=== PATIENT | female | born 1930 | race Caucasian/White ===

== ENCOUNTER 2019-05-07 02:23 | Emergency (ER) | payer MEDICARE, MEDICAID ==
[~2019-05-07] VITALS: Ht 160 cm; Wt 113.9 kg
[2019-05-07 02:23] VITALS: BP 119/62
--- NOTE | 2019-05-07 02:26 | NUR ---
PT JUANITO BLS. TAKEN TO BED 10
--- NOTE | 2019-05-07 02:30 | NUR ---
88 yo female biba from [facility] for s/p fall. pt presents with facial swelling; lip lac present with dried old red drainage. c spine precautions in place. pt c/o neck pain 8/10 sharp pain. pt aaox3, following commands. +3 brisk perrl. generalized weakness noted. pt has pacemaker, palpable pulses. skin pink warm dry. lungs clear even unlabored. abd soft non distended. gurney locked in lowest position. hx: copd, chf, htn, hld, pacemaker ax:pcn
--- NOTE | 2019-05-07 02:41 | NUR ---
Dr. Gonzalez examining patient
[2019-05-07] MEDS ORDERED: LIDOCAINE/EPI 1% 1:100000 20 ML VIAL INJ ONE (02:45)
[2019-05-07] MEDS ORDERED: fentaNYL 0.05 MG/ML VIAL IVP ONE (02:45)
[2019-05-07 03:07] LABS: EOSINOPHILS # (AUTO) 0.7 K/uL (0-0.4); HEMOGLOBIN 14.6 g/dL (12.0-16.0)
[2019-05-07 03:21] LABS: BASOPHILS # (AUTO) 0.2 K/uL (0.00-0.22); BASOPHILS % (AUTO) 1.4 % (0.0-2.0); HEMATOCRIT 44.1 % (36-48); LYMPHOCYTES # (AUTO) 1.3 K/uL (2.5-16.5); MEAN CORPUSCULAR HEMOGLOBIN 31 pg (27-31); MEAN CORPUSCULAR HGB CONC 33 g/dL (33-37); MEAN CORPUSCULAR VOLUME 94.8 fL (80-94); MONOCYTES # (AUTO) 1.2 K/uL (0.8-1.0); MONOCYTES % (AUTO) 7.4 % (1.7-9.3); NEUTROPHILS % (AUTO) 79.4 % (42.2-75.2); PLATELET COUNT (AUTO) 377 K/uL (140-450); RED BLOOD CELL COUNT(AUTO) 4.65 MIL/uL (4.20-5.40)
[2019-05-07 03:22] LABS: ANION GAP 12.1 (8-16); ASPARTATE AMINOTRANSFERASE 44 U/L (15-37); CARBON DIOXIDE 25.9 mmol/L (21-32); CHLORIDE 106 mmol/L (98-107); CREATININE 1.4 mg/dL (0.6-1.3); GLUCOSE 128 mg/dL (74-106); SODIUM SERUM 140 mmol/L (136-145); TOTAL BILIRUBIN 0.8 mg/dL (0.0-1.0); UREA NITROGEN, BLOOD 31 mg/dL (7-18)
[2019-05-07 03:24] LABS: LYMPHOCYTES % (AUTO) 7.8 % (20.5-51.1); WHITE BLOOD COUNT (AUTO) 16.4 K/uL (4.8-10.8)
[2019-05-07 03:26] LABS: PROTHROMBIN TIME 11.4 secs (10.8-13.4)
--- NOTE | 2019-05-07 04:28 | NUR ---
PT RETURN FROM CT
--- NOTE | 2019-05-07 04:30 | NUR ---
pt son @ bedside
--- NOTE | 2019-05-07 05:30 | NUR ---
pt trial run able to dangle feet @ bedside and amb with 3 steps weight bearing; standy assist.
[2019-05-07] MEDS ORDERED: ONDANSETRON 4 MG/2 ML VIAL IVP ONE (06:00)
[2019-05-07 06:05] VITALS: BP 128/62
--- NOTE | 2019-05-07 06:05 | NUR ---
Patient discharged with v/s stable. Written and verbal after care instructions given and explained. Patient alert, oriented and verbalized understanding of instructions. Wheel Chair Assisted to car. pt son provided transport to senior living. All questions addressed prior to discharge. ID band removed. Patient advised to follow up with PMD. Rx of tylenol given. Patient educated on indication of medication including possible reaction and side effects. Opportunity to ask questions provided and answered.
== END 2019-05-07 06:05 | disposition home or self-care (01) ==
LOC: MED 02:23
DX: S01.511A Laceration without foreign body of lip, initial encounter (principal); M54.2 Cervicalgia; Z88.0 Allergy status to penicillin; Z88.2 Allergy status to sulfonamides; Z88.1 Allergy status to other antibiotic agents; Z88.8 Allergy status to other drugs, medicaments and biological substances; Z95.0 Presence of cardiac pacemaker; Z86.79 Personal history of other diseases of the circulatory system; W06.XXXA Fall from bed, initial encounter; Y93.89 Activity, other specified; Y92.89 Other specified places as the place of occurrence of the external cause; Y99.8 Other external cause status
CPT/HCPCS: 36415; 40650; 70450; 71045; 72125; 80053; 85025; 85610; 85730; 96374; 96375; 99284; J2001; J2405; J3010; Q0092

== ENCOUNTER 2019-05-14 13:33 | Emergency (ER) | payer OTHER, MEDICARE, MEDICAID ==
[~2019-05-14] VITALS: Ht 160 cm; Wt 86.2 kg
[2019-05-14 13:35] VITALS: BP 112/47
[2019-05-14] MEDS ORDERED: BRIM5SOL3 OP (13:52)
[2019-05-14] MEDS ORDERED: GLIP5TAB4 PO (13:52)
[2019-05-14] MEDS ORDERED: ZEBETA PO (13:52)
[2019-05-14] MEDS ORDERED: HYDR500C PO (13:52)
[2019-05-14] MEDS ORDERED: CLOP75TA26 PO (13:52)
[2019-05-14] MEDS ORDERED: POTA10TE30 PO (13:52)
[2019-05-14] MEDS ORDERED: PRAV20TA2 PO (13:52)
[2019-05-14] MEDS ORDERED: FORM1 IH (13:52)
[2019-05-14] MEDS ORDERED: ASPI-1718 PO (13:52)
[2019-05-14] MEDS ORDERED: FURO-570 PO (13:52)
[2019-05-14] MEDS ORDERED: BUPR150T12 PO (13:52)
[2019-05-14] MEDS ORDERED: XALOS OP (13:52)
[2019-05-14] MEDS ORDERED: ONDANSETRON 4 MG/2 ML VIAL IVP ONE (14:15)
[2019-05-14] MEDS ORDERED: NACL 0.9% 1,000 ML IV ONE (14:15)
[2019-05-14 14:41] LABS: BASOPHILS % (AUTO) 0.2 % (0.0-2.0); EOSINOPHILS # (AUTO) 0.8 K/uL (0-0.4); HEMATOCRIT 45.4 % (36-48); HEMOGLOBIN 14.9 g/dL (12.0-16.0); LYMPHOCYTES # (AUTO) 1.2 K/uL (2.5-16.5); LYMPHOCYTES % (AUTO) 10.9 % (20.5-51.1); MEAN CORPUSCULAR HEMOGLOBIN 31 pg (27-31); MEAN CORPUSCULAR HGB CONC 33 g/dL (33-37); MEAN CORPUSCULAR VOLUME 95.1 fL (80-94); MONOCYTES % (AUTO) 9.2 % (1.7-9.3); NEUTROPHILS % (AUTO) 72.7 % (42.2-75.2); PLATELET COUNT (AUTO) 261 K/uL (140-450); RED BLOOD CELL COUNT(AUTO) 4.77 MIL/uL (4.20-5.40); RED CELL DISTRIBUTION WIDTH 16.3 % (11.6-13.7); WHITE BLOOD COUNT (AUTO) 11.1 K/uL (4.8-10.8)
[2019-05-14 14:59] LABS: ANION GAP 13.2 (8-16); ASPARTATE AMINOTRANSFERASE 36 U/L (15-37); CARBON DIOXIDE 22.8 mmol/L (21-32); CHLORIDE 110 mmol/L (98-107); CREATININE 1.2 mg/dL (0.6-1.3); GLUCOSE 111 mg/dL (74-106); LIPASE 124 U/L (73-393); SODIUM SERUM 142 mmol/L (136-145); TOTAL BILIRUBIN 0.8 mg/dL (0.0-1.0); UREA NITROGEN, BLOOD 20 mg/dL (7-18)
[2019-05-14 17:33] LABS: PROTHROMBIN TIME 12.1 secs (10.8-13.4)
[2019-05-14 18:03] LABS: BILIRUBIN,URINE NEGATIVE (NEGATIVE); BLOOD, URINE TRACE-L (NEGATIVE); LEUKOCYTE ESTERASE ,URINE 3+ (NEGATIVE); NITRITE, URINE NEGATIVE (NEGATIVE); UGLUCOSE NEGATIVE (NEGATIVE)
[2019-05-14 18:22] LABS: APPEARANCE,URINE CLOUDY (CLEAR); COLOR,URINE AMBER (YELLOW)
[2019-05-14 18:47] LABS: YEAST,URINE Few /HPF (None Seen)
[2019-05-14] MEDS ORDERED: LABETALOL 100 MG/20 ML VIAL IVP ONE (20:25)
[2019-05-14 20:50] VITALS: BP 116/63
== END 2019-05-14 20:50 | disposition short-term general hospital (02) ==
LOC: MED 13:33
DX: I71.00 Dissection of unspecified site of aorta (principal); I73.9 Peripheral vascular disease, unspecified; N39.0 Urinary tract infection, site not specified; Z79.82 Long term (current) use of aspirin; Z79.899 Other long term (current) drug therapy; Z88.1 Allergy status to other antibiotic agents; Z88.0 Allergy status to penicillin; Z88.2 Allergy status to sulfonamides; Z88.8 Allergy status to other drugs, medicaments and biological substances
CPT/HCPCS: 36415; 71275; 74174; 74176; 80053; 81001; 83605; 83690; 85025; 85610; 87040; 87086; 87186; 93005; 96374; 99291; J2405; J7030; Q9967

== ENCOUNTER 2019-05-22 14:05 | Inpatient (IN) | payer OTHER, MEDICAID ==
[~2019-05-22] VITALS: Ht 160 cm; Wt 85.3 kg
[2019-05-22 14:05] VITALS: BP 115/87
[~2019-05-22 14:05] MED LIST: ASPI-1718 PO; BRIM5SOL3 OP; BUPR150T12 PO; CLOP75TA26 PO; FORM1 IH; FURO-570 PO; GLIP5TAB4 PO; HYDR500C PO; POTA10TE30 PO; PRAV20TA2 PO; XALOS OP; ZEBETA PO
--- NOTE | 2019-05-22 14:05 | NUR ---
PT BIBA ALS TO ER BED 10
[2019-05-22 14:55] LABS: APPEARANCE,URINE HAZY (CLEAR); BILIRUBIN,URINE 1+ (NEGATIVE); BLOOD, URINE NEGATIVE (NEGATIVE); COLOR,URINE DARK YELLOW (YELLOW); LEUKOCYTE ESTERASE ,URINE TRACE (NEGATIVE); NITRITE, URINE NEGATIVE (NEGATIVE); PH,URINE 5.5 (5.0-9.0); UGLUCOSE NEGATIVE (NEGATIVE)
[2019-05-22 14:56] LABS: BASOPHILS % (AUTO) 0.4 % (0.0-2.0); EOSINOPHILS # (AUTO) 0.6 K/uL (0-0.4); EOSINOPHILS % (AUTO) 7.2 % (0.0-4.0); HEMATOCRIT 44.9 % (36-48); HEMOGLOBIN 14.7 g/dL (12.0-16.0); LYMPHOCYTES # (AUTO) 1.1 K/uL (2.5-16.5); LYMPHOCYTES % (AUTO) 12.9 % (20.5-51.1); MEAN CORPUSCULAR HEMOGLOBIN 32 pg (27-31); MEAN CORPUSCULAR HGB CONC 33 g/dL (33-37); MEAN CORPUSCULAR VOLUME 96.2 fL (80-94); MONOCYTES # (AUTO) 0.9 K/uL (0.8-1.0); MONOCYTES % (AUTO) 10.9 % (1.7-9.3); NEUTROPHILS # (AUTO) 5.6 K/uL (1.8-7.7); NEUTROPHILS % (AUTO) 68.6 % (42.2-75.2); PLATELET COUNT (AUTO) 251 K/uL (140-450); RED BLOOD CELL COUNT(AUTO) 4.66 MIL/uL (4.20-5.40); RED CELL DISTRIBUTION WIDTH 16.9 % (11.6-13.7); WHITE BLOOD COUNT (AUTO) 8.2 K/uL (4.8-10.8)
--- NOTE | 2019-05-22 14:58 | NUR ---
returns to our er from [facility] facility c/o sob and headache---full clear speech but with obvious accessory muscle use noted adds headache x 2 days denies recent injury
[2019-05-22 15:07] LABS: ANION GAP 15.4 (8-16); CHLORIDE 109 mmol/L (98-107); CREATININE 1.4 mg/dL (0.6-1.3); GLUCOSE 129 mg/dL (74-106); POTASSIUM 4.4 mmol/L (3.5-5.1); SODIUM SERUM 142 mmol/L (136-145); UREA NITROGEN, BLOOD 19 mg/dL (7-18)
[2019-05-22 15:10] LABS: RBC,URINE 0-5 /HPF (0-5)
[2019-05-22 15:13] LABS: ALBUMIN 1.8 g/dL (3.4-5.0); ASPARTATE AMINOTRANSFERASE 28 U/L (15-37); TOTAL BILIRUBIN 0.8 mg/dL (0.0-1.0)
[2019-05-22] MEDS ORDERED: BISO5TAB PO (15:33)
[2019-05-22] MEDS ORDERED: BUPR150T12 PO (15:33)
[2019-05-22] MEDS ORDERED: DORZ10SO23 OP (15:33)
[2019-05-22] MEDS ORDERED: VANCOMYCIN 1GM/DEXT 5% PREMIX 200 ML IV ONE (15:40)
[2019-05-22] MEDS ORDERED: VANCOMYCIN PER PHARMACY MC PRN (15:40)
[2019-05-22] MEDS ORDERED: VANCOMYCIN 1,000 MG VIAL ONE (16:01)
[2019-05-22] MEDS ORDERED: MORPHINE SULFATE 2 MG/ML SYR IVP PRN (16:10)
[2019-05-22] MEDS ORDERED: HYDROcodone/APAP 5/325 MG 1 TAB TAB PO PRN (16:10)
[2019-05-22] MEDS ORDERED: ONDANSETRON 4 MG/2 ML VIAL IM/IVP PRN (16:10)
[2019-05-22] MEDS ORDERED: DOCUSATE SODIUM 100 MG GELCAP PO PRN (16:10)
[2019-05-22] MEDS ORDERED: ACETAMINOPHEN 325 MG TAB PO PRN (16:10)
[2019-05-22] MEDS ORDERED: ALBUTEROL SULFATE/IPRATROPIU 3 ML SOL IH PRN (16:15)
[2019-05-22] MEDS ORDERED: MELATONIN 3 MG TAB PO PRN (16:20)
[2019-05-22] MEDS ORDERED: MEDICATION REC. PHARMACY CONS. 1 EA MISC MC PRN (16:20)
--- NOTE | 2019-05-22 16:50 | NUR ---
Patient will be admitted to care of DR. FRYE. Admited to TELE. Will go to room 128B. Belongings list completed. Report to PADMINI MITCHELL.
--- NOTE | 2019-05-22 17:00 | NUR ---
PT ARRIVED ON THE UNIT. RECEIVED REPORT FROM SHANK PINNER. ORIENTED PT TO UNIT AND ROOM. PERFORMED HEAD TO TOE ASSESSMENT. OBTAINED ADMISSION VITALS. OBTAINED MRSA NARES.
[2019-05-22 17:15] LABS: CHOL/HDL RATIO 6.9 (1-4.5); FREE T4 (FREE THYROXINE) 0.98 ng/dL (0.76-1.46); MAGNESIUM 1.4 mg/dL (1.8-2.4); PHOSPHORUS 3.1 mg/dL (2.5-4.9); THYROID STIMULATING HORMONE 3.86 uIU/mL (0.34-3.74)
[2019-05-22 17:35] LABS: PROTHROMBIN TIME 11.6 secs (10.8-13.4)
[2019-05-22] MEDS ORDERED: FUROSEMIDE 100 MG/10 ML VIAL IV SCH (18:00)
[2019-05-22] MEDS ORDERED: AZITHROMYCIN 250 MG TAB PO SCH (18:00)
[2019-05-22] MEDS: NACL 0.9% 1,000 ML IV SCH (18:05)
[2019-05-22] MEDS: MAG SULF 2000 MG/WATER PREMIX 100 ML IV SCH ×2 (18:50→20:58)
--- NOTE | 2019-05-22 19:28 | NUR ---
ENDORSED PT TO PM RN PT AWAKE IN BED PT ON 3L NASAL CANULA IVF INFUSING MAG RIDER INFUSING. ALL SAFETY MEASURES ARE IN PLACE
--- NOTE | 2019-05-22 19:29 | NUR ---
RECEIVED BEDSIDE REPORT FROM DAY RN. PT IS AAOX4. ON NC 3L O2 RESPIRATIONS ARE EQUAL AND UNLABORED. PT WITH SKIN TEAR ON NOSE AND STITCHES ON UPPER LIP. SKIN TEAR ON UMBICAL GRADE SETTER. ON FALL PRECAUTION. ON STANDARD ISOLATION. IV ON R FA 22G NS @1OML/H RECEIVING MG RIDER AT 25M/H FIRST BAG INFUSING ORDER FOR TWO. POC DISCUSSED WITH PT. CALL LIGHT IS WITHIN REACH. WILL CONTINUE TO MONITOR.
--- NOTE | 2019-05-22 19:36 | NUR ---
RECEIVED PATIENT ON 3L NC. TITRATED TO 2L, PULSE OX SAT 96%. PATIENT DENIES SOB AT THIS TIME. PRN HHN NOT INDICATED. NO ACUTE RESPIRATORY DISTRESS NOTED. WILL CONTINUE TO MONITOR.
[2019-05-22 20:00] VITALS: BP 108/58
[2019-05-22] MEDS: buPROPion 150 MG TABER PO SCH (20:47)
--- NOTE | 2019-05-22 20:47 | NUR ---
VSS. NARCISO MEDICATIONS WERE GIVEN PER ORDERS. ALL NEEDS MET AT THIS TIME. CALL LIGHT IS WITHIN REACH. WILL CONTINUE TO MONITOR
[2019-05-22] MEDS ORDERED: NON-FORMULARY ITEM (Dorzolamide HCl/Timolol Maleat (Dorzolamide-Timolol Eye Drops) 1 DROP) OP SCH (21:00)
[2019-05-22] MEDS ORDERED: NON-FORMULARY ITEM (Mometasone/Formoterol (Dulera 200 Mcg/5 Mcg Inhaler) 2 PUFF) IH SCH (21:00)
--- NOTE | 2019-05-22 22:00 | NUR ---
PT IS SLEEPING COMFORTABLY IN BED. CHEST RISE AND FALL. CALL LIGHT IS WITHIN REACH. BED ALARM ON.
[2019-05-23] VITALS: BP 119/57
--- NOTE | 2019-05-23 | NUR ---
VITAL SIGNS ARE WITHIN NORMAL LIMITS. SAFETY MEASURES ARE IN PLACE.
--- NOTE | 2019-05-23 02:17 | NUR ---
PT IS SLEEPING COMFORTABLY IN BED. GAVE REPORT TO EMELY OCHOA RN. PT ENDORSED IN STABLE CONDITION.
--- NOTE | 2019-05-23 02:34 | NUR ---
RECEIVED REPORT FROM GRETA WASHINGTON.PT'S CONDITION IS STABLE AND SLEEPING.NO S/S OF ANY DISTRESS NOTED. WILL CONTINUE MONITORING.
[2019-05-23 04:00] VITALS: BP 115/58
--- NOTE | 2019-05-23 04:36 | NUR ---
SLEEPING.HR IS PACED.NO RESP.DISTRESS NOTED.IVF AT TKO RATE IS IN PROGRESS.
--- NOTE | 2019-05-23 06:29 | NUR ---
STILL IS SLEEPING.IVF INFUSING WELL.NO S/S OF ANY DISTRESS NOW.CALL LIGHT WITHIN REACH.
--- NOTE | 2019-05-23 07:20 | NUR ---
Received report from night coordinator nurse. Pt in stable condition. Call light in reach.
[2019-05-23] MEDS: glipiZIDE 5 MG TAB PO SCH ×2 (07:44→16:56)
[2019-05-23 08:00] VITALS: BP 120/60
[2019-05-23] MEDS: ASPIRIN 81 MG TAB.CHEW PO SCH (08:36)
[2019-05-23] MEDS: buPROPion 150 MG TABER PO SCH ×2 (08:36→22:03)
[2019-05-23] MEDS: CLOPIDOGREL 75 MG TAB PO SCH (08:36)
[2019-05-23] MEDS ORDERED: NON-FORMULARY ITEM (Pravastatin Sodium* (Pravachol*) 10 MG) PO SCH (09:00)
[2019-05-23] MEDS ORDERED: BISOPROLOL FUMARATE 2.5 MG PO SCH (09:00)
[2019-05-23] MEDS ORDERED: CLOPIDOGREL BISULFATE 75 MG PO SCH (09:00)
[2019-05-23] MEDS ORDERED: FUROSEMIDE 20 MG/2 ML VIAL IVP SCH (09:00)
[2019-05-23] MEDS ORDERED: HYDROXYUREA 500 MG CAP PO SCH (10:00)
--- NOTE | 2019-05-23 10:30 | NUR ---
Pt is resting in bed. No signs of distress noted. No complaints of pain. Call light in reach.
--- NOTE | 2019-05-23 11:00 | NUR ---
Pt removed IV line on right AC. Catheter intact. No active bleeding noted. Call light in reach.
[2019-05-23 12:00] VITALS: BP 111/60
--- NOTE | 2019-05-23 13:00 | NUR ---
Pt in bed resting. No signs of distress noted. Pt in stable condition. Call light in reach.
[2019-05-23] MEDS ORDERED: ATENOLOL 25 MG TAB PO SCH (14:15)
[2019-05-23 16:00] VITALS: BP 106/49
--- NOTE | 2019-05-23 16:00 | NUR ---
Pt is resting in bed. No signs of distress noted. Call light in reach.
--- NOTE | 2019-05-23 16:00 | NUR ---
Pt's IV line was inserted to right forearm 22G by ER nurse. Line is intact, and patent. Call light in reach.
[2019-05-23] MEDS ORDERED: INSULIN LISPRO SLIDING SCALE 100 UNITS/ML VIAL SUBQ PRN (16:55)
[2019-05-23] MEDS ORDERED: DEXTROSE 50% 50 ML SYR IVP PRN (16:55)
[2019-05-23] MEDS: NACL 0.9% 1,000 ML IV SCH (18:00)
--- NOTE | 2019-05-23 18:00 | NUR ---
Pt is in bed eating dinner. Daughter by bedside. No signs of distress noted .Call light in reach.
[2019-05-23] MEDS: AZITHROMYCIN 250 MG TAB PO SCH (18:22)
--- NOTE | 2019-05-23 19:38 | NUR ---
Shift report given to night coordinator nurse. Pt is in stable condition. Call light in reach.
--- NOTE | 2019-05-23 19:39 | NUR ---
RECEIVED BEDSIDE REPORT FROM DAY RN. PT IS AAOX4. ON NC 2L O2 RESPIRATIONS ARE EQUAL AND UNLABORED. PT WITH SKIN TEAR ON NOSE AND STITCHES ON UPPER LIP STEVE. SKIN TEAR ON UMBICAL DRESSING IS CLEAN DRY AND INTACT. HAS OPTIFOAM ON SACRAL. ON FALL PRECAUTION. ON STANDARD ISOLATION. IV ON R FA 22G NS @1OML/H FAMILY IS AT BEDSIDE. POC DISCUSSED WITH PT. CALL LIGHT IS WITHIN REACH. WILL CONTINUE TO MONITOR.
[2019-05-23 20:00] VITALS: BP 120/68
--- NOTE | 2019-05-23 20:30 | NUR ---
VITAL SIGNS ARE WITHIN NORMAL LIMITS. BLOOD SUGAR IS 104 NO COVERAGE NEEDED. CALL LIGHT IS WITHIN REACH.
--- NOTE | 2019-05-23 20:32 | NUR ---
RECEIVED PATIENT ON 2L NASAL CANNULA, PULSE OX 96%. NO SOB NOTED AT THIS TIME. PRN HHN NOT INDICATED. NO RESPIRATORY DISTRESS NOTED. WILL CONTINUE TO MONITOR.
[2019-05-23] MEDS: BLOOD GLUCOSE MONITORING 1 DEV DEV FS SCH (20:49)
[2019-05-23] MEDS ORDERED: LATANOPROST 0.005% OP 2.5 ML BTL OP SCH (21:00)
--- NOTE | 2019-05-23 22:30 | NUR ---
PATIENT IS SLEEPING COMFORTABLY IN BED. CHEST RISE AND FALL. REMAINS ON NC 2L O2. CALL LIGHT IS WITHIN REACH. WILL CONTINUE TO MONITOR.
[2019-05-24] VITALS: BP 113/38
--- NOTE | 2019-05-24 | NUR ---
VITAL SIGNS ARE WITHIN NORMAL LIMITS. NO S/S OF DISTRESS. SAFETY MEASURES. CALL LIGHT IS WITHIN REACH.
--- NOTE | 2019-05-24 01:22 | NUR ---
PATIENT IS SLEEPING COMFORTABLY IN BED. CHEST RISE AND FALL. SAFETY MEASURES ARE IN PLACE.
--- NOTE | 2019-05-24 02:43 | NUR ---
PATIENT IS SLEEPING COMFORTABLY IN BED. CHEST RISE AND FALL. CALL LIGHT IS WITHIN REACH.
[2019-05-24 04:00] VITALS: BP 100/50
--- NOTE | 2019-05-24 04:00 | NUR ---
VITAL SIGNS ARE WITHIN NORMAL LIMITS. NO S/S OF DISTRESS. CALL LIGHT IS WITHIN REACH.
[2019-05-24] MEDS: BLOOD GLUCOSE MONITORING 1 DEV DEV FS SCH ×3 (06:34→17:15)
[2019-05-24] MEDS: glipiZIDE 5 MG TAB PO SCH ×2 (06:34→16:30)
--- NOTE | 2019-05-24 06:35 | NUR ---
BLOOD SUGAR IS 68. GAVE PATIENT APPLE JUICE AND HELD NARCISO GLIPIZIDE. SAFETY MEASURES ARE IN PLACE. WILL CONTINUE TO MONITOR
[2019-05-24] MEDS ORDERED: VANCOMYCIN PER PHARMACY MC PRN (07:15)
[2019-05-24 07:27] LABS: BASOPHILS # (AUTO) 0.2 K/uL (0.00-0.22); BASOPHILS % (AUTO) 2.3 % (0.0-2.0); EOSINOPHILS # (AUTO) 0.7 K/uL (0-0.4); HEMATOCRIT 44.6 % (36-48); HEMOGLOBIN 14.7 g/dL (12.0-16.0); LYMPHOCYTES # (AUTO) 0.9 K/uL (2.5-16.5); LYMPHOCYTES % (AUTO) 9.4 % (20.5-51.1); MEAN CORPUSCULAR HEMOGLOBIN 32 pg (27-31); MEAN CORPUSCULAR HGB CONC 33 g/dL (33-37); MEAN CORPUSCULAR VOLUME 96.1 fL (80-94); MONOCYTES % (AUTO) 9.9 % (1.7-9.3); NEUTROPHILS # (AUTO) 7.1 K/uL (1.8-7.7); NEUTROPHILS % (AUTO) 71.4 % (42.2-75.2); PLATELET COUNT (AUTO) 206 K/uL (140-450); RED BLOOD CELL COUNT(AUTO) 4.64 MIL/uL (4.20-5.40); RED CELL DISTRIBUTION WIDTH 16.6 % (11.6-13.7); WHITE BLOOD COUNT (AUTO) 9.9 K/uL (4.8-10.8)
--- NOTE | 2019-05-24 07:30 | NUR ---
GAVE BEDSIDE REPORT TO DAY RN. PT ENDORSED IN STABLE CONDITION.
[2019-05-24 07:34] LABS: CARBON DIOXIDE 23.4 mmol/L (21-32); CHLORIDE 107 mmol/L (98-107); CREATININE 1.2 mg/dL (0.6-1.3); GLUCOSE 66 mg/dL (74-106); POTASSIUM 3.4 mmol/L (3.5-5.1); SODIUM SERUM 139 mmol/L (136-145); UREA NITROGEN, BLOOD 18 mg/dL (7-18)
--- NOTE | 2019-05-24 07:41 | NUR ---
RECEIVED REPORT FROM PAINTING TECHNICIAN RN FOR CONTINUITY OF CARE. PT IS AAOX4, AMBULATORY AND COOPERATIVE. PT RESP EVEN AND UNLABORED ON RA. NO S/S OF DISTRESS. ALL NEEDS CURRENTLY MET. WILL CONTINUE TO ROUND FREQUENTLY ON PT. BED IN LOW POSITION, CALL LIGHT WITHIN REACH. WILL ROUND FREQUENTLY ON PT. Addendum: 05/24/19 at 1246 by Cristin Lara RN PT ON 2L O2 VIA NC. PT NOT AMBULATORY WITHOUT WALKER. PT PREFERS HER WHEELCHAIR.
[2019-05-24 07:51] LABS: MAGNESIUM 1.6 mg/dL (1.8-2.4)
[2019-05-24 08:00] VITALS: BP 102/70
--- NOTE | 2019-05-24 08:25 | NUR ---
PATIENT HAS BEEN SCREENED AND CATEGORIZED HIGH NUTRITION RISK. PATIENT WILL BE SEEN WITHIN 1-2 DAYS OF ADMISSION. 05/24/[address]
[2019-05-24] MEDS ORDERED: ATENOLOL 25 MG TAB PO SCH (09:00)
[2019-05-24] MEDS ORDERED: FUROSEMIDE 20 MG TAB PO SCH (09:00)
[2019-05-24] MEDS ORDERED: DORZOLAMIDE 2% OP 10 ML BTL OP SCH (09:00)
[2019-05-24] MEDS: buPROPion 150 MG TABER PO SCH (09:00)
[2019-05-24] MEDS ORDERED: TIMOLOL OP 0.5% 5 ML BTL OP SCH (09:00)
--- NOTE | 2019-05-24 09:41 | NUR ---
ADMINISTERED MORNING MEDS TO PT. PT TOLERATED THEM WELL. ALL NEEDS CURRENTLY MET. WILL CONTINUE TO ROUND FREQUENTLY ON PT.
[2019-05-24] MEDS: ASPIRIN 81 MG TAB.CHEW PO SCH (09:43)
[2019-05-24] MEDS: CLOPIDOGREL 75 MG TAB PO SCH (09:43)
[2019-05-24] MEDS ORDERED: POTASSIUM CHLORIDE 10 MEQ TABER PO SCH ×2 (10:00→16:00)
--- NOTE | 2019-05-24 11:49 | NUR ---
PT RESTING IN BED. ALL NEEDS MET. WILL CONTINUE TO ROUND FREQUENTLY ON PT.
[2019-05-24 12:00] VITALS: BP 106/52
--- NOTE | 2019-05-24 12:14 | NUR ---
WOUND CARE EVALUATION NOTE: REASON FOR EVALUATION: MULTIPLE WOUNDS SKIN ASSESSMENT DONE WITH THIS 88 Y/O MALE PT ADMITTED TO [facility] WITH INITIAL DX OF S/P FALL PT IS AWAKE. SKIN IS WARM AND DRY, GOOD TURGOR. BLE NO HAIR GROWTH, NO EDEMA TO BILATERAL LOWER LEGS. BILATERAL DORSAL PEDAL PULSES PRESENT AND NORMAL THICKEN TOE NAILS OBSERVED. PLAN OF CARE DISCUSSED WITH PRIMARY RN AND PT. PT. VERBALIZING UNDERSTANDING, PT. IS AAX4. CLARIFICATION: NO PRESSURE ULCER TO SACRALCOCCYX AREA INTEGUMENTARY: -RIGHT UPPER LIP SUTURES IN PLACE DRY AND CLEAN, NO S/S OF DEHISCENCES -MID ABDOMEN UN-KNOW ETIOLOGY WITH PARTIAL THICKNESS SKIN LOSS 1X1.5X0.1CM WOUND BED PALE PINK WITH 20% YELLOW SLOUGH TISSUE, MOIST NO ODOR, WOUND EDGE FLAT JOHANA-WOUND SKIN INTACT -LEFT INNER BUTTOCK MAD WITH PARTIAL THICKNESS SKIN LOSS 0.5X0.2X0.1CM WOUND BED 100% PALE PINK MOIST NO ODOR, WOUND EDGE FLAT JOHANA-WOUND SKIN INTACT -SACRALCOCCYX SKIN INTACT NO OPEN WOUND RECOMMENDATION: -CLEANSE RIGHT UPPER LIP SUTURE LINE WITH NS. DAILY, PAT DRY AND FOOD OR BAGGAGE HANDLING RAMPMAN, MONITOR AND REPORT S/S OF INFECTION -CLEANSE MID ABDOMEN AND LEFT BUTTOCK WITH NS AND GAUZE, PAT DRY, APPLY HYDROCOLLOID DRESSING, CHANGE Q72 HOURS AND PRN WITH SOILING. -OFFLOAD BILATERAL HEELS BY PLACING PILLOWS UNDER CALVES UNLESS OTHERWISE CONTRAINDICATED -PRESSURE REDISTRIBUTION SURFACE THERAPY -TURN AND REPOSITION Q2H, OFFLOAD SACRALCOCCYX BY TURNING RIGHT AND LEFT -CONTINUE TO FOLLOW RD RECOMMENDATIONS PLEASE CONTACT WOUND CARE NURSE FOR ANY QUESTION AND CHANGE OF WOUND CONDITION.
[2019-05-24] MEDS ORDERED: GAUZE TP SCH (13:00)
--- NOTE | 2019-05-24 13:14 | NUR ---
PT SLEEPING IN BED. ALL NEEDS MET. WILL CONTINUE TO ROUND FREQUENTLY ON PT. BED IN LOW POSITION, CALL LIGHT WITHIN REACH.
--- NOTE | 2019-05-24 13:55 | NUR ---
05/24/19 RD INITIAL ASSESSMENT COMPLETED PLEASE REFER TO NUTRITION ASSESSMENT UNDER CARE ACTIVITY FOR ESTIMATED NUTRITIONAL NEEDS. 1. RECOMMEND CARDIAC, 60G CCHO MECHANICAL SOFT DIET 2. RECOMMEND GLUCERNA TID 3. RD TO FOLLOW-UP 2-3 DAYS, HIGH RISK VENANCIO MARKS, RD
--- NOTE | 2019-05-24 14:16 | NUR ---
DC PLANNING 88 YRS OLD WAS ADMITTED FROM HOME, WITH A DX OF PNEUMONIA, PT HAS PRIMARY INSURANCE [employer] AND SECONDARY [employer]. PT IS STABLE TO TRANSFER CALLED SONY SPOKE WITH MATHEW HARRIS , FAXED ALL THE CLINICALS AND INPATIENT HOSPITAL STAY NOTICE FORM. PER MATHEW LOOKING FOR A BED AND WILL BE TRANSFERRED TODAY.
[2019-05-24 16:00] VITALS: BP 124/64
[2019-05-24] MEDS ORDERED: MAG SULF 2000 MG/WATER PREMIX 50 ML IV SCH (16:00)
--- NOTE | 2019-05-24 16:54 | NUR ---
RECEIVED CALL FROM [facility] FOR PT TRANSFER. PT WILL BE GOING TO [facility] UNDER Ivan HAWTHORNE FOR CONTINUITY OF CARE. PT WILL BE GOING TO TELE ROOM 345. INDICATED TO HAVE REPORT GIVEN AT OR AFTER 1930 DUE TO NO ONE AVAILABLE TO TAKE REPORT UNTIL AFTER SHIFT CHANGE. PT TRANSPORT IS [facility] OR [facility]. PT AGILE PROJECT MANAGER TIME IS 2029.
[2019-05-24] MEDS ORDERED: LACTOBACILLUS RHAMNOSUS GG 1 EACH CAP PO SCH (17:00)
[2019-05-24] MEDS ORDERED: VANCOMYCIN 1,000 MG in DEXTROSE 5% 250 ML IV SCH (17:00)
[2019-05-24] MEDS ORDERED: AZIT250T11 PO (17:37)
[2019-05-24] MEDS ORDERED: D50SYR IVP (17:37)
[2019-05-24] MEDS ORDERED: FURO20TA8 PO (17:37)
[2019-05-24] MEDS ORDERED: VANC1PIG IV (17:37)
[2019-05-24] MEDS ORDERED: HUMSLIDE SUBQ (17:37)
[2019-05-24] MEDS ORDERED: ALBU3SOL83 IH ×2 (17:37)
[2019-05-24] MEDS ORDERED: LACT10CA PO (17:37)
[2019-05-24] MEDS ORDERED: GLUC-805 FS (17:37)
[2019-05-24] MEDS: NACL 0.9% 1,000 ML IV SCH (18:00)
--- NOTE | 2019-05-24 18:14 | NUR ---
PT RESTING IN BED HAVING DINNER. ALL NEEDS MET. WILL CONTINUE TO ROUND FREQUENTLY ON PT. BED IN LOW POSITION, CALL LIGHT WITHIN REACH.
[2019-05-24] MEDS: AZITHROMYCIN 250 MG TAB PO SCH (18:33)
[2019-05-24] MEDS ORDERED: ALBUTEROL SULFATE/IPRATROPIU 3 ML SOL IH SCH (19:00)
--- NOTE | 2019-05-24 19:15 | NUR ---
RECEIVED REPORT FROM SANITATION TANK WASHER RN FOR CONTINUITY OF CARE. PT IS AAOX3 WITH SOME PERIODS OF FORGETFULNESS ABLE TO FOLLOW SIMPLE COMMANDS. PT ON 2L O2 VIA NC. PT NOT AMBULATORY WITHOUT WALKER. PT PREFERS HER WHEELCHAIR. PT RESP EVEN AND UNLABORED ON RA. NO S/S OF DISTRESS. WITH R FOREARM IV SITE G 24, PATENT. BED IN LOW POSITION, CALL LIGHT WITHIN REACH. WILL ROUND FREQUENTLY ON PT.
[2019-05-24 20:00] VITALS: BP 97/48
--- NOTE | 2019-05-24 20:30 | NUR ---
OPTHA MEDS, HEPARIN NOT GIVEN DUE TO DISCHARGE ONGOING. NO BLOOD GLUCOSE TAKEN. WILL INFORM [facility] NURSE. DR. DANIEL AWARE.
--- NOTE | 2019-05-24 20:50 | NUR ---
CD OF PT RADIOLOGY READY AT RAD DEPT
--- NOTE | 2019-05-24 21:00 | NUR ---
GAVE DISCHARGE REPORT TO PADMINI MC. TEL NO [phone]. NURSE INFORMED THAT VANCO IVPB NOT YET STARTED AND TO GIVE THE 1ST DOSE AT [facility].PT IS GOING TO ROOM 345. FAXED [phone] ALSO DISCHARGE REPORT AND RECEIVED BY JASPAL,INFORMATION SYSTEMS SECURITY DEVELOPER
--- NOTE | 2019-05-24 21:01 | NUR ---
INFORMED ALREADY ALEXANDRO WASHINGTON. NO BLOOD GLUCOSE WAS TAKEN PRIOR TO DISCHARGE
--- NOTE | 2019-05-24 21:02 | NUR ---
INFORMED ALEXANDRO THAT BP ON THE LOW SIDE 97/48 ( MAP 60) HR 61; DR. DANIEL AWARE.
--- NOTE | 2019-05-24 21:30 | NUR ---
NO SPUTUM OF THE PATIENT WAS COLLECTED BEFORE DISCHARGE
--- NOTE | 2019-05-24 23:02 | NUR ---
TALKED TO CALHOUN WAS ASKING FOR ANTIBIOTIC THAT WE STARTED. TOLD HIM WE HAVE STARTED ON AZITHRO PO BUT THEY HAVE TO START THE 1ST DOSE OF VANCO 1 GRAM IV WE HAVE NOT STARTED IT YET. INFPRMED ON THE DISCHARGE SUMMMARY PER FAXED COPY TO JASPAL/ ALEXANDRO WASHINGTON
--- NOTE | 2019-05-25 00:07 | NUR ---
DISCHARGED AND TRANSFERRED PICKED UP BY NON-EMERGENCY TRANSPORT TO [facility]. PT'S VITAL SIGNS STABLE. ACCOMPANIED BY DAUGHTER AND ESCORTED TO EXIT.
[2019-05-25] MEDS ORDERED: LACTOBACILLUS RHAMNOSUS GG 1 EACH CAP PO SCH (09:00)
[2019-05-27] MEDS ORDERED: HYDROCOLLOID DRESSING TP SCH (09:00)
== END 2019-05-24 21:52 | disposition short-term general hospital (02) | DRG 177 ==
LOC: MED 14:05 → MMU 16:06
PROVIDERS: ADMIT General Practice; ATTEND General Practice
DX: J69.0 Pneumonitis due to inhalation of food and vomit (principal); N17.0 Acute kidney failure with tubular necrosis; I50.43 Acute on chronic combined systolic (congestive) and diastolic (congestive) heart failure; E43 Unspecified severe protein-calorie malnutrition; I42.0 Dilated cardiomyopathy; N39.0 Urinary tract infection, site not specified; Z68.33 Body mass index [BMI] 33.0-33.9, adult; F44.4 Conversion disorder with motor symptom or deficit; I11.0 Hypertensive heart disease with heart failure; Z95.0 Presence of cardiac pacemaker; I49.5 Sick sinus syndrome; Z96.651 Presence of right artificial knee joint; Z96.652 Presence of left artificial knee joint; Z66 Do not resuscitate; F32.9 Major depressive disorder, single episode, unspecified; E83.42 Hypomagnesemia; E02 Subclinical iodine-deficiency hypothyroidism; J44.9 Chronic obstructive pulmonary disease, unspecified; E87.6 Hypokalemia; D45 Polycythemia vera; K21.9 Gastro-esophageal reflux disease without esophagitis; Z88.1 Allergy status to other antibiotic agents; Z88.0 Allergy status to penicillin; Z88.2 Allergy status to sulfonamides; Z88.8 Allergy status to other drugs, medicaments and biological substances; Z79.82 Long term (current) use of aspirin; Z79.899 Other long term (current) drug therapy; Z90.11 Acquired absence of right breast and nipple; Z87.891 Personal history of nicotine dependence
CPT/HCPCS: 36415; 36600; 71045; 80048; 80053; 81001; 82150; 82803; 82948; 83036; 83605; 83690; 83735; 83880; 84100; 84439; 84443; 84484; 85025; 85610; 85730; 87040; 87081; 87086; 93005; 94640; 97530; 99285; C1758; J1644; J1940; J3370; J3475; J7030; J7060; J7620; Q0092

== ENCOUNTER 2019-07-25 11:09 | Emergency (ER) | payer OTHER, MEDICAID ==
[~2019-07-25] VITALS: Ht 165.1 cm; Wt 90.7 kg
[~2019-07-25 11:09] MED LIST changes: +ALBU3SOL83 IH; +AZIT250T11 PO; +BISO5TAB PO; -BRIM5SOL3 OP; +D50SYR IVP; +DORZ10SO23 OP; -FURO-570 PO; +FURO20TA8 PO; +GLUC-805 FS; +HUMSLIDE SUBQ; +LACT10CA PO; +VANC1PIG IV; -ZEBETA PO
[2019-07-25 11:20] VITALS: BP 116/52
[2019-07-25] MEDS: CLINDAMYCIN 600 MG/4 ML VIAL IM ONE (13:33)
[2019-07-25 14:18] VITALS: BP 113/44
== END 2019-07-25 14:19 | disposition home or self-care (01) ==
LOC: MED 11:09
DX: L03.811 Cellulitis of head [any part, except face] (principal); J44.9 Chronic obstructive pulmonary disease, unspecified; E11.9 Type 2 diabetes mellitus without complications; K21.9 Gastro-esophageal reflux disease without esophagitis; I10 Essential (primary) hypertension; Z95.0 Presence of cardiac pacemaker; Z98.890 Other specified postprocedural states; Z79.82 Long term (current) use of aspirin; Z79.899 Other long term (current) drug therapy; Z79.4 Long term (current) use of insulin; Z88.1 Allergy status to other antibiotic agents; Z88.0 Allergy status to penicillin; Z88.2 Allergy status to sulfonamides; Z88.8 Allergy status to other drugs, medicaments and biological substances
CPT/HCPCS: 96372; 99283; J3490

== ENCOUNTER 2019-07-28 09:56 | Inpatient (IN) | payer OTHER, MEDICAID ==
[~2019-07-28] VITALS: Ht 160 cm; Wt 84.8 kg
--- NOTE | 2019-07-28 09:56 | NUR ---
PATIENT BIBA TO BED 7 AT THIS TIME.
[2019-07-28 10:03] VITALS: BP 101/55
--- NOTE | 2019-07-28 10:29 | NUR ---
C/O SOB FROM [facility]. RR EVEN AND UNLABORED. PRODUCTIVE COUGH NOTED. LUNGS RONCHI BILATERALLY. PT ON 4 L NC. ABDOMEN LARGE, ROUND, AND SOFT. NO EDEMA NOTED. PAIN 4/10 USING NAVARRO ARIZA SCALE. WAS SEEN ON FRIDAY FOR [facility] S/S ADN DISCHARGED HOME. PMH- MS, PACEMAKER, COPD, CHF, PNA
[2019-07-28] MEDS ORDERED: NACL 0.9% 1,000 ML IV ONE (10:35)
--- NOTE | 2019-07-28 10:39 | NUR ---
XRAY AT BEDSIDE
--- NOTE | 2019-07-28 11:03 | NUR ---
IV INSERTED AND LABS DRAWN BEDSIDE
--- NOTE | 2019-07-28 11:07 | NUR ---
give fluids as bolus per de neida verbal order. bp 91/34
[2019-07-28] MEDS ORDERED: LEVOFLOXACIN 750 MG/D5W PREMIX 150 ML IV ONE (11:20)
[2019-07-28] MEDS ORDERED: FUROSEMIDE 40 MG/4 ML VIAL IVP ONE (11:25)
[2019-07-28 11:32] LABS: BASOPHILS # (AUTO) 0.1 K/uL (0.00-0.22); BASOPHILS % (AUTO) 0.4 % (0.0-2.0); EOSINOPHILS # (AUTO) 0.6 K/uL (0-0.4); EOSINOPHILS % (AUTO) 4.3 % (0.0-4.0); HEMATOCRIT 44.7 % (36-48); HEMOGLOBIN 14.4 g/dL (12.0-16.0); LYMPHOCYTES # (AUTO) 0.8 K/uL (2.5-16.5); LYMPHOCYTES % (AUTO) 6.2 % (20.5-51.1); MEAN CORPUSCULAR HEMOGLOBIN 30 pg (27-31); MEAN CORPUSCULAR HGB CONC 32 g/dL (33-37); MEAN CORPUSCULAR VOLUME 92.8 fL (80-94); MONOCYTES # (AUTO) 1.1 K/uL (0.8-1.0); MONOCYTES % (AUTO) 8.3 % (1.7-9.3); NEUTROPHILS # (AUTO) 10.5 K/uL (1.8-7.7); NEUTROPHILS % (AUTO) 80.8 % (42.2-75.2); PLATELET COUNT (AUTO) 323 K/uL (140-450); RED BLOOD CELL COUNT(AUTO) 4.81 MIL/uL (4.20-5.40)
--- NOTE | 2019-07-28 11:36 | NUR ---
LEVAQUIN RUNNING AND LASIX ADMINISTERED
--- NOTE | 2019-07-28 11:43 | NUR ---
STUDENTS AND INSTRUCTOR AT BEDSIDE FOR STRAIGHT CATH
[2019-07-28] MEDS ORDERED: HYDROcodone/APAP 7.5/325 MG 1 TAB PO PRN (11:45)
[2019-07-28] MEDS ORDERED: ONDANSETRON 4 MG/2 ML VIAL IM/IVP PRN (11:45)
[2019-07-28] MEDS ORDERED: DOCUSATE SODIUM 100 MG GELCAP PO PRN (11:45)
[2019-07-28] MEDS ORDERED: ACETAMINOPHEN 325 MG TAB PO PRN (11:45)
--- NOTE | 2019-07-28 11:59 | NUR ---
500 CC DARK YELLOW URINE COLLECTED FROM STRAIGHT IMMUNOLOGIST AT BEDSIDE FOR RE-DRAW
--- NOTE | 2019-07-28 12:15 | NUR ---
PTS DAUGHTER AT BEDSIDE [phone]
[2019-07-28] MEDS ORDERED: ALBUTEROL SULFATE/IPRATROPIU 3 ML SOL IH PRN (12:45)
[2019-07-28] MEDS ORDERED: CLINDAMYCIN 300 MG in DEXTROSE 5% 50 ML IV SCH (12:45)
[2019-07-28] MEDS ORDERED: INSULIN LISPRO SLIDING SCALE 100 UNITS/ML VIAL SUBQ PRN (13:00)
[2019-07-28] MEDS ORDERED: DEXTROSE 50% 50 ML SYR IVP PRN (13:00)
[2019-07-28 13:04] LABS: APPEARANCE,URINE CLOUDY (CLEAR); BILIRUBIN,URINE NEGATIVE (NEGATIVE); BLOOD, URINE 2+ (NEGATIVE); COLOR,URINE YELLOW (YELLOW); LEUKOCYTE ESTERASE ,URINE 3+ (NEGATIVE); NITRITE, URINE NEGATIVE (NEGATIVE); UGLUCOSE NEGATIVE (NEGATIVE)
[2019-07-28 13:07] LABS: ALBUMIN 0.9 g/dL (3.4-5.0); ASPARTATE AMINOTRANSFERASE 24 U/L (15-37); CARBON DIOXIDE 18.9 mmol/L (21-32); CHLORIDE 114 mmol/L (98-107); CREATININE 0.7 mg/dL (0.6-1.3); GLUCOSE 233 mg/dL (74-106); SODIUM SERUM 145 mmol/L (136-145); TOTAL BILIRUBIN 0.4 mg/dL (0.0-1.0); UREA NITROGEN, BLOOD 13 mg/dL (7-18)
[2019-07-28 13:11] LABS: POTASSIUM 1.9 mmol/L (3.5-5.1)
--- NOTE | 2019-07-28 13:13 | NUR ---
wound pictures taken and documented
[2019-07-28] MEDS ORDERED: MAG SULF 2000 MG/WATER PREMIX 50 ML IV ONE (13:15)
[2019-07-28] MEDS ORDERED: CALCIUM GLUCONATE 10% 1000 MG/10 ML VIAL IVP ONE (13:15)
[2019-07-28 13:24] LABS: RBC,URINE 0-5 /HPF (0-5); WBC,URINE TOO MANY TO COUNT /HPF (0-5); YEAST,URINE Few /HPF (None Seen)
[2019-07-28] MEDS: ALBUTEROL SULFATE/IPRATROPIU 3 ML SOL IH SCH ×2 (13:25→19:44)
--- NOTE | 2019-07-28 13:29 | NUR ---
AIDA RN SPOKE WITH RESIDENT. PER AIAD, HANG MAGNESIUM AND POTASSIUM TOGETHER
--- NOTE | 2019-07-28 13:30 | NUR ---
UNABLE TO OBTAIN ANOTHER IV ASCESS. WILL RUN MAGNESIUM IV. PT TAKING ORALLY PO POTASSIUM. THEN TO RUN POTASSIUM
[2019-07-28] MEDS ORDERED: BUDESONIDE 0.5 MG/2 ML NEBU INH SCH (14:00)
[2019-07-28] MEDS ORDERED: POTASSIUM CHLORIDE 20% 40 MEQ/15 ML UDC PO SCH (14:00)
[2019-07-28 14:19] LABS: CHOL/HDL RATIO 6.6 (1-4.5); FREE T4 (FREE THYROXINE) 1.21 ng/dL (0.76-1.46); PHOSPHORUS 3.3 mg/dL (2.5-4.9); THYROID STIMULATING HORMONE 1.51 uIU/mL (0.34-3.74)
--- NOTE | 2019-07-28 14:25 | NUR ---
Pt RECEIVED FROM GUILLE WASHINGTON. Transfer of care at this time.
[2019-07-28] MEDS: NACL 0.9% 250 ML IV SCH (14:30)
--- NOTE | 2019-07-28 14:33 | NUR ---
PATIENT ALERT AND AWAKE, BREATHING EVEN AND UNLABORED. RT AT BEDSIDE
[2019-07-28] MEDS ORDERED: CALCIUM GLUCONATE 10% 1,000 MG in NACL 0.9% 100 ML IV SCH (15:00)
[2019-07-28] MEDS ORDERED: POTASSIUM CHLORIDE 40 MEQ, LIDOCAINE MPF 1% 25 MG in NACL 0.9% 250 ML IV ONE (15:00)
[2019-07-28 15:08] LABS: PROTHROMBIN TIME 11.7 secs (10.8-13.4)
--- NOTE | 2019-07-28 15:30 | NUR ---
PATIENT ALERT AND ORIENTED, BREATHING EVEN AND UNLABORED
[2019-07-28 16:00] VITALS: BP 132/62
--- NOTE | 2019-07-28 16:00 | NUR ---
PT CAME TO UNIT VIA [facility]. PT WAS MOVED FROM [facility] TO UNIT BED. ADMISSION ASSESSMENT DONE. SACRAL WOUND NOTED. ER PICTURE TAKEN. IV LINE INTACT. PT ON 4L NC O2. PT IS RESPONSIVE AND FOLLOWING COMMANDS. PT IS RESPONSIVE TO VERBAL COMMANDS. PT IS NOW RESTING IN BED WITH NO COMPLAINS OF PAIN. CALL LIGHT IN REACH.
--- NOTE | 2019-07-28 16:10 | NUR ---
Patient will be admitted to care of DR FRYE. Admited to TELE. Will go to room 125A. Belongings list completed. Report to DOMINGA WASHINGTON.
[2019-07-28] MEDS: BLOOD GLUCOSE MONITORING 1 DEV DEV FS SCH ×2 (16:30→20:56)
--- NOTE | 2019-07-28 18:42 | NUR ---
PT IS NOTED WITH SACRAL WOUND. ED PICTURE TAKEN. REPORTED TO RESIDENT WOUND CONSULT ORDERED. WOUND ASSESSMENT DONE. NO DRAINAGE NOTED, NO ODOR NOTED. OPTIFOAM APPLIED. CALL LIGHT IN REACH.
--- NOTE | 2019-07-28 19:25 | NUR ---
SHIFT REPORT GIVEN TO AIR CONDITIONING EQUIPMENT MECHANIC NURSE. PT IS RESTING IN BED. VITAL WITHIN NORMAL LEVELS. CALL LIGHT IN REACH.
--- NOTE | 2019-07-28 19:26 | NUR ---
RECEIVED BEDSIDE REPORT FROM DAY SHIFT NURSE. NO SOB NOTED. BREATHING EVEN AND UNLABORED. SKIN WARM AND DRY TO TOUCH. IV SITE ON L WRIST, RUNNING KCL. PATENT, INTACT, AND ASYMPTOMATIC. BOARD UPDATED. BED IN LOW POSITION, CALL LIGHT WITHIN REACH.
[2019-07-28 20:00] VITALS: BP 129/61
[2019-07-28] MEDS: buPROPion 150 MG TABER PO SCH ×2 (20:56→21:00)
--- NOTE | 2019-07-28 20:56 | NUR ---
GIVEN HEPARIN MD ORDERED. PT TOLERATED WELL. 1500 SCHEDULED CALCIUM GIVEN D/T DELAYED IV AND NOT GIVEN IN DAY SHIFT. PT REFUSED WELLBUTRIN. EXPLAIN BENEFIT AND RISK, PT STILL REFUSED.
[2019-07-28] MEDS ORDERED: CLINDAMYCIN 600 MG/4 ML VIAL ONE (22:48)
[2019-07-28] MEDS: CLINDAMYCIN 300 MG in DEXTROSE 5% 50 ML IV SCH (22:53)
[2019-07-28 23:47] LABS: ANION GAP 11.7 (8-16); CHLORIDE 111 mmol/L (98-107); GLUCOSE 110 mg/dL (74-106); POTASSIUM 3.7 mmol/L (3.5-5.1); SODIUM SERUM 145 mmol/L (136-145)
[2019-07-28 23:48] LABS: CREATININE 1.1 mg/dL (0.6-1.3); UREA NITROGEN, BLOOD 17 mg/dL (7-18)
[2019-07-29] VITALS: BP 99/49
--- NOTE | 2019-07-29 | NUR ---
VS CHECKED, PT'S BASELINE. WILL CONTINUE TO MONITOR.
--- NOTE | 2019-07-29 02:00 | NUR ---
PT SLEEPING IN BED. NO ACUTE DISTRESS NOTED.
[2019-07-29 04:00] VITALS: BP 110/57
--- NOTE | 2019-07-29 04:00 | NUR ---
VS CHECKED, WITHIN PT'S BASELINE. WILL CONTINUE TO MONITOR. BED IN LOW POSITION, CALL LIGHT WITHIN REACH.
[2019-07-29] MEDS ORDERED: CLINDAMYCIN 600 MG/4 ML VIAL ONE ×2 (04:18→20:24)
[2019-07-29] MEDS: CLINDAMYCIN 300 MG in DEXTROSE 5% 50 ML IV SCH ×3 (04:23→20:27)
--- NOTE | 2019-07-29 04:23 | NUR ---
GIVEN CLEOCIN MD ORDERED. PT TOLERATED WELL.
[2019-07-29] MEDS: BLOOD GLUCOSE MONITORING 1 DEV DEV FS SCH ×4 (05:56→20:17)
--- NOTE | 2019-07-29 05:56 | NUR ---
BS CHECKED, 95, NO INSULIN COVERAGE NEEDED.
--- NOTE | 2019-07-29 06:57 | NUR ---
PT IN STABLE CONDITION, WILL ENDORSE TO DAY SHIFT NURSE FOR CONTINUOUS CARE.
[2019-07-29 07:22] LABS: BASOPHILS # (AUTO) 0.2 K/uL (0.00-0.22); BASOPHILS % (AUTO) 1.5 % (0.0-2.0); EOSINOPHILS # (AUTO) 0.4 K/uL (0-0.4); EOSINOPHILS % (AUTO) 3.9 % (0.0-4.0); HEMATOCRIT 39.3 % (36-48); HEMOGLOBIN 13.1 g/dL (12.0-16.0); LYMPHOCYTES # (AUTO) 0.7 K/uL (2.5-16.5); MEAN CORPUSCULAR HEMOGLOBIN 31 pg (27-31); MEAN CORPUSCULAR HGB CONC 33 g/dL (33-37); MEAN CORPUSCULAR VOLUME 93.1 fL (80-94); MONOCYTES % (AUTO) 10.2 % (1.7-9.3); NEUTROPHILS # (AUTO) 7.8 K/uL (1.8-7.7); NEUTROPHILS % (AUTO) 77.4 % (42.2-75.2); PLATELET COUNT (AUTO) 312 K/uL (140-450); RED BLOOD CELL COUNT(AUTO) 4.23 MIL/uL (4.20-5.40); RED CELL DISTRIBUTION WIDTH 16.1 % (11.6-13.7); WHITE BLOOD COUNT (AUTO) 10.1 K/uL (4.8-10.8)
--- NOTE | 2019-07-29 07:25 | NUR ---
RECEIVED REPORT FROM PILOT TEACHER NURSE. PATIENT IS SLEEPING, VISIBLE CHEST RISE AND FALL. PATIENT IS DNR WITH MULTIPLE DRUG ALLERGIES. PATIENT HAS A STAGE 2 PRESSURE ULCER, CAME FROM [facility]. ON NASAL CANNULA 4L AT BASELINE. IV TO L WRIST 22G AT TKO RATE. PATIENT IS INCONTINENT. WILL REVIEW AND CONTINUE WITH PLAN OF CARE FOR THE DAY.
[2019-07-29 08:00] VITALS: BP 122/56
[2019-07-29 08:29] LABS: ANION GAP 10.1 (8-16); CARBON DIOXIDE 29.5 mmol/L (21-32); CHLORIDE 111 mmol/L (98-107); CREATININE 1.3 mg/dL (0.6-1.3); GLUCOSE 91 mg/dL (74-106); POTASSIUM 3.6 mmol/L (3.5-5.1); SODIUM SERUM 147 mmol/L (136-145); UREA NITROGEN, BLOOD 16 mg/dL (7-18)
[2019-07-29] MEDS: ALBUTEROL SULFATE/IPRATROPIU 3 ML SOL IH SCH ×3 (08:44→19:17)
--- NOTE | 2019-07-29 08:45 | NUR ---
AWAKE AND ALERT PATIENT STATES THAT SHE USES SUPPLEMENTAL OXYGEN AT HOME 2 LPM VIA NC SATURATION 99% ON SUPPLEMENTAL OXYGEN AT 3 LPM POST HHN THERAPY TITRATED FIO2 TO 2 LPM CODY/RN NOTIFIED PATIENT C/O NASAL DRYNESS WITH OXYGEN USE ADDED HUMIDIFIER
[2019-07-29] MEDS ORDERED: LEVOFLOXACIN 500 MG/D5W PREMIX 100 ML IV SCH (08:50)
--- NOTE | 2019-07-29 08:59 | NUR ---
PATIENT HAS BEEN SCREENED AND CATEGORIZED HIGH NUTRITION RISK. PATIENT WILL BE SEEN WITHIN 1-2 DAYS OF ADMISSION. 07/29/19-07/30/[address]
[2019-07-29] MEDS ORDERED: FUROSEMIDE 40 MG/4 ML VIAL IVP SCH (09:00)
[2019-07-29] MEDS: POTASSIUM CHLORIDE 10 MEQ TABER PO SCH (09:19)
[2019-07-29] MEDS: CALCIUM CARB/VIT-D 500 MG/200 IU 1 TAB PO SCH ×2 (09:19→20:27)
[2019-07-29] MEDS: buPROPion 150 MG TABER PO SCH ×2 (09:19→20:27)
[2019-07-29] MEDS: ASPIRIN 81 MG TAB.CHEW PO SCH (09:19)
[2019-07-29] MEDS: LACTOBACILLUS RHAMNOSUS GG 1 EACH CAP PO SCH (09:20)
[2019-07-29] MEDS: CLOPIDOGREL 75 MG TAB PO SCH (09:20)
--- NOTE | 2019-07-29 09:34 | NUR ---
ADMINISTERED MORNING MEDICATION CRUSHED AND MIXED WITH YOGURT. PATIENT TOLERATED WELL.
[2019-07-29] MEDS: NACL 0.9% 250 ML IV SCH ×2 (10:55→20:28)
--- NOTE | 2019-07-29 11:15 | NUR ---
BLOOD SUGAR OF 117, NO INSULIN NEEDED.
--- NOTE | 2019-07-29 11:40 | NUR ---
SPOKE TO TRICIA IN PHARMACY REGARDING PATIENTS ALLERGIES. PER TRICIA, THE DR WANTS TO GIVE PATIENT LEVAQUIN. CALLED [facility]THEW TO CONFIRM ALLERGIES. WAS TOLD BY NURSE THERE THAT THE ONLY ALLERGY THEY ARE AWARE OF IS PENICILLIN WITH A RECENT REACTION OF HIVES. INFORMED TRICIA. TRICIA WILL ORDER LEVAQUIN WITH CAUTION FOR NURSES TO WATCH FOR ANY SIGNS OF REACTIONS.
[2019-07-29 12:00] VITALS: BP 120/50
--- NOTE | 2019-07-29 12:46 | NUR ---
PATIENT IS SLEEPING, EASILY AROUSABLE. NO COMPLAINTS AT THIS TIME. FAMILY IS AT BEDSIDE
[2019-07-29] MEDS ORDERED: MAG SULF 2000 MG/WATER PREMIX 100 ML IV SCH (13:00)
[2019-07-29] MEDS: LEVOFLOXACIN 250 MG/D5 PREMIX 50 ML IV SCH (13:31)
--- NOTE | 2019-07-29 13:32 | NUR ---
BEGAN INFUSION OF LEVAQUIN IVPB. WILL MONITOR PATIENT CLOSELY FOR S/S OF ALLERGIC REACTION. DAUGHTER AT BEDSIDE.
--- NOTE | 2019-07-29 13:49 | NUR ---
Material Hauler Note: Basic Screen: Yes High Risk DC Screen Yes Name: SYEDA HOLLAND Home Relationship: DAUGHTER/POA Pre-Admission Living Arrangements: Other Other: [facility] Prior ADL Total/Dependent Current Home Health Name/Tel: [facility] Current DME/02 Name/Tel: HOSPITAL BED Current Hospice Name/Tel: N/A Current Dialysis Name/Tel: N/A Healthcare Decision Maker: Next of Kin Other: SYEDA FOSSA Advance Directive No Discipline: Case Mgt/Social Svcs Tentative Discharge Plan/Destination: No Needs Identified Other SNF/ECF Other: [facility] Will require assistance post discharge: No Referred to Ornamental Bronze Worker: No Tentative Discharge Plan Summary: Patient is an 88-year-old female admitted for CHF exacerbation. Patient has history of CHF, hypertension, COPD, glaucoma, diabetes mellitis II, and hx of AL. Patient was admitted from [facility]. SW contacted Kamila from [facility] who stated that patient is bed bound and needs assistance with all ADLs. Patient's healthcare decision maker is Syeda Holland who is patient's daughter and POA. Patient has no advanced directive on file. Patient's tentative discharge plan is to return to [facility]. No further needs identified. Signature: CONSTANCE Price Date: Jul 29, 2019 Time: 13:47
--- NOTE | 2019-07-29 14:05 | NUR ---
07/29/19 RD INITIAL ASSESSMENT COMPLETED PLEASE REFER TO NUTRITION ASSESSMENT UNDER CARE ACTIVITY FOR ESTIMATED NUTRITIONAL NEEDS. 1. RECOMMEND A CCHO 60GM AND CARDIAC DIET WITH RECOMMENDATIONS BY DOPE POURER 2. RECOMMEND GLUCERNA TID 3. RECOMMEND MVI QD AND VITAMIN C [address] TO FOLLOW-UP 2-3 DAYS, HIGH RISK VENANCIO MARKS, RD
--- NOTE | 2019-07-29 14:17 | NUR ---
PATIENT DID NOT HAVE A REACTION TO LEVAQUIN. DR LAURI HOLCOMB.
--- NOTE | 2019-07-29 15:34 | NUR ---
*S.T. BEDSIDE SWALLOW EVAL COMPLETED* See report. Pt presents w/ moderate oropharyngeal dysphagia c/b inability to safely chew or manage solids due to absence of her lower partial denture. P.O. trials solids not given due to pt report that she cannot chew solids without her lower denture that is not currently present in hospital. Pt also demo'd immediate cough after small cup sip of thin liquids. Pt unable to suck liquids via straw. Pt is deemed at moderate risk for aspiration. Recommend: 1) Continue pureed diet, advance to nectar thick liquids via cup sip or spoon sip. NO STRAWS. 2) Advance to mechanical soft ground diet ONLY IF LOWER PARTIAL DENTURE IS MADE AVAILABLE HERE IN HOSPITAL. 3) P.O. meds crushed and mixed w/ puree such as applesauce. 4) Pt does not prefer apple juices. Please provide other options such as orange or cranberry instead. 5) FNS Kitchen to provide nectar thick water for bedside table as well as additional packets of thickener. 6) Nsg to assist w/ positioning pt upright and tray set up to promote self-feeding. 7) S.T. to follow up 1x/1wk w/ p.o. trials to ensure tolerance of recommended diet textures as well as assess for advancing diet, if appropriate. D/w pt results/recommendations; endorsed to PADMINI Meyer. Time [id number]
[2019-07-29 16:00] VITALS: BP 111/58
--- NOTE | 2019-07-29 16:39 | NUR ---
BLOOD SUGAR OF 109, NO INSULIN NEEDED. PATIENT IS SITTING UP IN BED, NO COMPLAINTS AT THIS TIME.
--- NOTE | 2019-07-29 19:30 | NUR ---
RECEIVED REPORT FROM DAY SHIFT NURSE. PATIENT IS AWAKE, LYING ON BED. DENIES PAIN. NO SOB OR ANY RESPIRATORY DISTRESS NOTED WITH 2LPM O2 VIA NC. PATIENT IS DNR WITH MULTIPLE DRUG ALLERGIES. IV TO L WRIST 22G, PATENT, INTACT, AND ASYMPTOMATIC. WILL REVIEW AND CONTINUE WITH PLAN OF CARE FOR THE DAY. BED IN LOW POSITION, CALL LIGHT WITHIN REACH.
[2019-07-29 20:00] VITALS: BP 102/42
--- NOTE | 2019-07-29 20:28 | NUR ---
GIVEN CLEOCIN, CALCIUM, WELLBUTRIN, AND HEPARIN MD ORDERED. PT TOLERATED WELL. BS CHECKED, 106, NO INSULIN COVERAGE NEEDED.
[2019-07-30] VITALS: BP 109/43
--- NOTE | 2019-07-30 | NUR ---
VS CHECKED, WITHIN PT'S BASELINE. BED IN LOW POSITION. WILL CONTINUE TO MONITOR.
--- NOTE | 2019-07-30 02:25 | NUR ---
PT SLEEPING COMFORTABLY IN BED. NO ACUTE DISTRESS NOTED.
[2019-07-30] MEDS: NACL 0.9% 250 ML IV SCH ×3 (03:35→18:25)
[2019-07-30 04:00] VITALS: BP 103/45
[2019-07-30] MEDS ORDERED: CLINDAMYCIN 600 MG/4 ML VIAL ONE (04:57)
[2019-07-30] MEDS: CLINDAMYCIN 300 MG in DEXTROSE 5% 50 ML IV SCH ×3 (05:08→22:00)
[2019-07-30] MEDS: BLOOD GLUCOSE MONITORING 1 DEV DEV FS SCH ×4 (05:14→21:00)
--- NOTE | 2019-07-30 05:15 | NUR ---
BS CHECKED, 88 NO INSULIN COVERAGE NEEDED.
[2019-07-30 06:07] LABS: BASOPHILS # (AUTO) 0.3 K/uL (0.00-0.22); BASOPHILS % (AUTO) 2.8 % (0.0-2.0); EOSINOPHILS # (AUTO) 0.5 K/uL (0-0.4); EOSINOPHILS % (AUTO) 4.7 % (0.0-4.0); HEMATOCRIT 41.4 % (36-48); HEMOGLOBIN 13.4 g/dL (12.0-16.0); LYMPHOCYTES # (AUTO) 0.6 K/uL (2.5-16.5); MEAN CORPUSCULAR HEMOGLOBIN 30 pg (27-31); MEAN CORPUSCULAR HGB CONC 32 g/dL (33-37); MEAN CORPUSCULAR VOLUME 92.4 fL (80-94); MONOCYTES # (AUTO) 1.2 K/uL (0.8-1.0); MONOCYTES % (AUTO) 10.8 % (1.7-9.3); NEUTROPHILS # (AUTO) 8.1 K/uL (1.8-7.7); NEUTROPHILS % (AUTO) 75.7 % (42.2-75.2); PLATELET COUNT (AUTO) 262 K/uL (140-450); RED BLOOD CELL COUNT(AUTO) 4.48 MIL/uL (4.20-5.40); WHITE BLOOD COUNT (AUTO) 10.7 K/uL (4.8-10.8)
[2019-07-30 06:24] LABS: ANION GAP 12.8 (8-16); CARBON DIOXIDE 26.6 mmol/L (21-32); CHLORIDE 109 mmol/L (98-107); CREATININE 1.2 mg/dL (0.6-1.3); GLUCOSE 94 mg/dL (74-106); POTASSIUM 3.4 mmol/L (3.5-5.1); SODIUM SERUM 145 mmol/L (136-145); UREA NITROGEN, BLOOD 15 mg/dL (7-18)
[2019-07-30 06:30] LABS: MAGNESIUM 1.6 mg/dL (1.8-2.4)
--- NOTE | 2019-07-30 06:31 | NUR ---
PT AWAKE, LYING IN BED. NO ACUTE DISTRESS NOTED.
[2019-07-30] MEDS ORDERED: POTASSIUM CHLORIDE 20% 40 MEQ/15 ML UDC PO SCH (07:13)
--- NOTE | 2019-07-30 07:25 | NUR ---
RECEIVED REPORT FROM RECONDITIONER NURSE AT BEDSIDE FOR CONTINUITY OF CARE. PATIENT IS SLEEPING, BUT AROUSABLE, LYING ON BED. NO SOB OR ANY RESPIRATORY DISTRESS NOTED WITH 2LPM O2 VIA NC. PATIENT IS DNR WITH MULTIPLE DRUG ALLERGIES. IV TO L WRIST 22G, PATENT, INTACT, AND ASYMPTOMATIC INFUSING IVF WELL. UPDATED BOARD. WILL REVIEW AND CONTINUE WITH PLAN OF CARE FOR THE DAY. SAFETY PRECAUTIONS IN PLACE, BED IN LOW POSITION WITH BRAKES AND ALARM ON, CALL LIGHT WITHIN REACH, WILL CONTINUE TO MONITOR PATIENT.
[2019-07-30] MEDS: ALBUTEROL SULFATE/IPRATROPIU 3 ML SOL IH SCH ×3 (07:50→20:06)
[2019-07-30 08:00] VITALS: BP 117/57
[2019-07-30] MEDS ORDERED: CRUSHER, PILL MC ONE (08:47)
[2019-07-30] MEDS: POTASSIUM CHLORIDE 10 MEQ TABER PO SCH (08:50)
[2019-07-30] MEDS: CLOPIDOGREL 75 MG TAB PO SCH (08:50)
[2019-07-30] MEDS: buPROPion 150 MG TABER PO SCH ×2 (08:50→22:00)
[2019-07-30] MEDS: CALCIUM CARB/VIT-D 500 MG/200 IU 1 TAB PO SCH ×2 (08:50→22:00)
[2019-07-30] MEDS: LACTOBACILLUS RHAMNOSUS GG 1 EACH CAP PO SCH (08:50)
[2019-07-30] MEDS: ASPIRIN 81 MG TAB.CHEW PO SCH (08:50)
--- NOTE | 2019-07-30 08:55 | NUR ---
ORDERED MEDICATIONS GIVEN. PATIENT TOLERATED THEM WELL. NO COMPLAINTS AT THIS TIME. LASIX IVP WITHHELD AT THIS TIME D/T PATIENT ACCIDENTALLY DISLODGING IV, IV CANNULA INTACT, MINIMAL BLEEDING NOTED. SAFETY PRECAUTIONS IN PLACE, CALL LIGHT WITHIN REACH, WILL CONTINUE TO MONITOR PATIENT. Addendum: 07/30/19 at 1345 by Case Wiggins RN NIC[employer] QA ANALYST, IN TO ASSESS THE PATIENT. WILL WAIT FOR HER RECOMMENDATION.
[2019-07-30] MEDS ORDERED: FUROSEMIDE 20 MG/2 ML VIAL IVP SCH (09:00)
--- NOTE | 2019-07-30 09:10 | NUR ---
WOUND CARE EVALUATION NOTE: REASON FOR EVALUATION: SACRAL WOUND SKIN ASSESSMENT DONE WITH PRIMARY RN ON THIS 88 Y/O FEMALE PT ADMITTED FROM SNF TO [facility] WITH INITIAL DX OF DYSPNEA. PAST MEDICAL HX INCLUDES CHF, HTN, DM AND COPD. ALL ABOVE INFORMATION OBTAINED FROM ADMISSION H&P. PT IS AWAKE. SKIN IS WARM AND DRY, BLE NO HAIR GROWTH, NO EDEMA.BILATERAL DORSAL PEDAL PULSES PRESENT AND NORMAL. CAPILLARY REFILLED < 2 SEC. PLAN OF CARE DISCUSSED WITH PRIMARY RN AND PT. PT. 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 RECOMMENDATIONS: -KEEP SKIN DRY AND CLEAN AT ALL TIMES, PLEASE CHECK Q2H AND PRN FOR INCONTINENCY OF BOWEL AND BLADDER. -CLEANSE SACRAL WOUNDS WITH NS, PAT DRY, APPLY HYDROGEL TO WOUND BED AND COVER WITH DRY DRESSING QD AND PRN IF SOILING -OFFLOAD BILATERAL HEELS BY PLACING PILLOWS UNDER CALVES UNLESS OTHERWISE CONTRAINDICATED -PRESSURE REDISTRIBUTION SURFACE THERAPY -TURN AND REPOSITION Q2H, OFFLOAD SACRALCOCCYX BY TURNING RIGHT AND LEFT -CONTINUE TO FOLLOW RD RECOMMENDATIONS ALL ABOVE RECOMMENDATIONS DISCUSSED WITH PRIMARY RN WILL FOLLOW UP PT Q7-10 DAYS. PLEASE CONTACT WOUND CARE NURSE FOR ANY QUESTION AND CHANGE OF WOUND CONDITION.
[2019-07-30] MEDS ORDERED: FUROSEMIDE 20 MG TAB PO SCH (09:20)
[2019-07-30] MEDS ORDERED: SODIUM PHOS / POTASSIUM PHOS 1 PKT PDR PO SCH (10:00)
[2019-07-30] MEDS ORDERED: SKINTEGRITY HYDROGEL TP PRN (10:20)
--- NOTE | 2019-07-30 11:05 | NUR ---
ORDERED MEDICATIONS GIVEN. PATIENT TOLERATED THEM WELL. NO COMPLAINTS AT THIS TIME. SAFETY PRECAUTIONS IN PLACE, CALL LIGHT WITHIN REACH, WILL CONTINUE TO MONITOR PATIENT.
--- NOTE | 2019-07-30 12:00 | NUR ---
ORDERED ANTIBIOTICS GIVEN. PATIENT TOLERATING IT WELL. NO COMPLAINTS AT THIS TIME. SAFETY PRECAUTIONS IN PLACE, CALL LIGHT WITHIN REACH, WILL CONTINUE TO MONITOR PATIENT.
[2019-07-30] MEDS: LEVOFLOXACIN 250 MG/D5 PREMIX 50 ML IV SCH (12:37)
--- NOTE | 2019-07-30 12:37 | NUR ---
ORDERED ANTIBIOTICS GIVEN. PATIENT TOLERATING IT WELL. NO COMPLAINTS AT THIS TIME. SAFETY PRECAUTIONS IN PLACE, CALL LIGHT WITHIN REACH, WILL CONTINUE TO MONITOR PATIENT.
[2019-07-30 12:45] VITALS: BP 112/49
--- NOTE | 2019-07-30 13:30 | NUR ---
PATIENT SITTING UP IN BED GETTING BREATHING TREATMENT. DR. ANDREW IN TO SEE THE PATIENT. PATIENT HAS NO COMPLAINTS AT THIS TIME. WILL CONTINUE TO MONITOR PATIENT.
[2019-07-30] MEDS: SKINTEGRITY HYDROGEL TP SCH (14:30)
--- NOTE | 2019-07-30 15:30 | NUR ---
ORDERED MAG RIDER GIVEN. PATIENT TOLERATING IT WELL. NO COMPLAINTS AT THIS TIME. SAFETY PRECAUTIONS IN PLACE, CALL LIGHT WITHIN REACH, WILL CONTINUE TO MONITOR PATIENT.
[2019-07-30 16:00] VITALS: BP 110/51
[2019-07-30] MEDS ORDERED: MAG SULF 2000 MG/WATER PREMIX 50 ML IV SCH (16:00)
--- NOTE | 2019-07-30 19:15 | NUR ---
REPORT GIVEN TO ORTHOTICS PROSTHETICS TECHNICIAN NURSE AT BEDSIDE FOR CONTINUITY OF CARE. PATIENT IN STABLE CONDITION.
--- NOTE | 2019-07-30 19:30 | NUR ---
RECEIVED BEDSIDE REPORT FROM AM SHIFT RN FOR PT'S CONTINUITY OF CARE. PT IS AAOX3, ON O2 2L VIA NC, ON ELECTRICAL APPRENTICE, HAS LEFT FA 22G WITH NS AT 30ML/HR, DENIES ANY PAIN AT THIS TIME. EXPLAINED TO PT THE KETTLE GIRL ROUTINE, PT VERBALIZED UNDERSTANDING. SAFETY MEASURES IN PLACE, AND CALL LIGHT IS WITHIN REACH. PT MADE COMFORTABLE. WILL MONITOR PT THROUGHOUT THE SHIFT.
[2019-07-30 20:00] VITALS: BP 108/59
--- NOTE | 2019-07-30 20:16 | NUR ---
RECEIVED PT ON 2L NC WITH SP02 OF 97% AND A CLEAR BREATH SOUNDS. NO RESPIRATORY DISTRESS NOTED AT THIS TIME; HR 83, RR 16. HHN TX GIVEN ORDERED WITH NO ADVERSE REACTION. WILL CONTINUE TO MONITOR PT
--- NOTE | 2019-07-30 21:45 | NUR ---
OFFERED PT COLACE, PT AGREED, BUT WHEN ABOUT TO ADMINISTER, PT REFUSED. DID NOT WANT TO TAKE MEDICATION ANYMORE.
--- NOTE | 2019-07-30 22:00 | NUR ---
ADMINISTERED SCHEDULED IV ABX, SUBQ, AND PO MEDICATIONS ORDERED. PT TOLERATED THEM FAIRLY, MEDS ARE CRUSHED IN THICKENED LIQUID, GIVEN AT INTERVALS SINCE PT C/O THAT IT DOES NOT TASTE GOOD. PT'S NEEDS MET AT THIS TIME. WILL CONTINUE TO MONITOR.
[2019-07-31] VITALS: BP 123/60
--- NOTE | 2019-07-31 00:15 | NUR ---
VS CHECKED AND CHARTED. PT AWAKE, DENIES ANY PAIN AT THIS TIME. WILL CONTINUE TO MONITOR PT.
--- NOTE | 2019-07-31 02:00 | NUR ---
MADE ROUNDS, PT LYING DOWN ASLEEP WITH NO SIGNS OF DISTRESS.
--- NOTE | 2019-07-31 03:30 | NUR ---
PT'S LINENS CHANGED, PT COUGHING INTERMITTENTLY. DENIES ANY PAIN AT THIS TIME. VS CHECKED AND CHARTED.
[2019-07-31 04:00] VITALS: BP 102/56
[2019-07-31] MEDS: NACL 0.9% 250 ML IV SCH ×3 (04:27→21:15)
[2019-07-31] MEDS: CLINDAMYCIN 300 MG in DEXTROSE 5% 50 ML IV SCH ×3 (04:27→20:21)
--- NOTE | 2019-07-31 05:30 | NUR ---
PT ASLEEP WITH NO SIGNS OF DISTRESS. PT INTERMITTENTLY COUGHING. NOTIFIED MD, WILL PUT IN ORDER FOR COUGH MEDICINE.
[2019-07-31] MEDS ORDERED: guaiFENesin 20 MG/ML UDC PO PRN (05:35)
[2019-07-31] MEDS: BLOOD GLUCOSE MONITORING 1 DEV DEV FS SCH ×4 (06:05→20:37)
--- NOTE | 2019-07-31 06:12 | NUR ---
BLOOD GLUCOSE CHECKED AND CHARTED. NO COVERAGE NEEDED. OFFERED PT COUGH MEDICATION, PT REFUSED. PT TEACHING GIVEN. PT DENIES ANY NEEDS AT THIS TIME. PT MADE COMFORTABLE. WILL ENDORSE TO AM SHIFT RN FOR PT'S CONTINUITY OF CARE.
--- NOTE | 2019-07-31 07:15 | NUR ---
RECEIVED REPORT FROM DESKTOP PUBLISHING SPECIALIST NURSE AT BEDSIDE FOR CONTINUITY OF CARE. PATIENT IS SLEEPING, BUT AROUSABLE, LYING ON BED. NO SOB OR ANY RESPIRATORY DISTRESS NOTED WITH 2L O2 VIA NC. PATIENT IS DNR WITH MULTIPLE DRUG ALLERGIES. IV TO L FA 22G, PATENT, INTACT, AND ASYMPTOMATIC INFUSING IVF WELL. UPDATED BOARD. WILL REVIEW AND CONTINUE WITH PLAN OF CARE FOR THE DAY. SAFETY AND ASPIRATION PRECAUTIONS IN PLACE, BED IN LOW POSITION WITH BRAKES AND ALARM ON, CALL LIGHT WITHIN REACH, WILL CONTINUE TO MONITOR PATIENT.
[2019-07-31] MEDS: ALBUTEROL SULFATE/IPRATROPIU 3 ML SOL IH SCH ×3 (07:20→20:17)
[2019-07-31 08:15] VITALS: BP 104/46
[2019-07-31] MEDS ORDERED: POTASSIUM CHLORIDE 10 MEQ TABER PO SCH (09:00)
[2019-07-31] MEDS: CALCIUM CARB/VIT-D 500 MG/200 IU 1 TAB PO SCH ×2 (09:00→20:21)
[2019-07-31] MEDS ORDERED: FUROSEMIDE 40 MG/5 ML ORAL SOL UDC PO SCH (09:18)
[2019-07-31] MEDS ORDERED: POTASSIUM CHLORIDE 20% 40 MEQ/15 ML UDC PO SCH (09:19)
[2019-07-31] MEDS: buPROPion 150 MG TABER PO SCH ×2 (09:42→20:22)
[2019-07-31] MEDS: LACTOBACILLUS RHAMNOSUS GG 1 EACH CAP PO SCH (09:42)
[2019-07-31] MEDS: ASPIRIN 81 MG TAB.CHEW PO SCH (09:43)
[2019-07-31] MEDS: CLOPIDOGREL 75 MG TAB PO SCH (09:43)
[2019-07-31] MEDS: DOCUSATE 100 MG/10 ML UDC PO SCH (09:48)
--- NOTE | 2019-07-31 09:55 | NUR ---
ORDERED MEDICATIONS GIVEN. PATIENT REFUSED LIQUID POTASSIUM STATING IT HERNANDEZ, REFUSED CALCIUM TABLET BECAUSE PILL "WAS TOO BIG AND CAN'T TAKE ANYMORE". RN VERBALIZED UNDERSTANDING. DR. WOOD IN TO SEE THE PATIENT, WILL WAIT FOR HER RECOMMENDATION. PATIENT NOW RESTING IN BED, NO S/S OF SOB OR DISTRESS NOTED, PATIENT DENIES PAIN. SAFETY AND ASPIRATION PRECAUTIONS IN PLACE, BED IN LOWEST POSITION WITH BRAKES AND ALARM ON, CALL LIGHT WITHIN REACH, WILL CONTINUE TO MONITOR PATIENT.
[2019-07-31] MEDS ORDERED: LISINOPRIL 5 MG TAB PO SCH (10:40)
[2019-07-31 12:10] VITALS: BP 99/47
[2019-07-31] MEDS: LEVOFLOXACIN 250 MG/D5 PREMIX 50 ML IV SCH (12:20)
--- NOTE | 2019-07-31 12:20 | NUR ---
PATIENT VOIDED. PATIENT CLEANED AND CHANGED. WOUND DRESSING CLEANED AND CHANGED PER ORDER. PATIENT TOLERATED IT. ORDERED MEDICATION AND ANTIBIOTIC GIVEN. PATIENT TOLERATED IT. BLOOD SUGAR 123, NO COVERAGE NEEDED. SAFETY AND ASPIRATION PRECAUTIONS IN PLACE, CALL LIGHT WITHIN REACH, WILL CONTINUE TO MONITOR PATIENT.
[2019-07-31] MEDS: SKINTEGRITY HYDROGEL TP SCH (12:25)
--- NOTE | 2019-07-31 12:30 | NUR ---
1040 dose of lisinopril not given. Patient's BP 99/[address] Parish aware. Will continue to monitor patient.
[2019-07-31] MEDS ORDERED: HYDROXYUREA 500 MG CAP PO SCH (13:00)
[2019-07-31 13:29] LABS: BASOPHILS % (AUTO) 0.4 % (0.0-2.0); EOSINOPHILS # (AUTO) 0.3 K/uL (0-0.4); EOSINOPHILS % (AUTO) 3.3 % (0.0-4.0); HEMATOCRIT 41.1 % (36-48); HEMOGLOBIN 13.4 g/dL (12.0-16.0); LYMPHOCYTES # (AUTO) 0.2 K/uL (2.5-16.5); LYMPHOCYTES % (AUTO) 2.2 % (20.5-51.1); MEAN CORPUSCULAR HEMOGLOBIN 30 pg (27-31); MEAN CORPUSCULAR HGB CONC 33 g/dL (33-37); MEAN CORPUSCULAR VOLUME 91.9 fL (80-94); MONOCYTES # (AUTO) 0.6 K/uL (0.8-1.0); MONOCYTES % (AUTO) 5.4 % (1.7-9.3); NEUTROPHILS # (AUTO) 9.1 K/uL (1.8-7.7); NEUTROPHILS % (AUTO) 88.7 % (42.2-75.2); PLATELET COUNT (AUTO) 239 K/uL (140-450); RED BLOOD CELL COUNT(AUTO) 4.47 MIL/uL (4.20-5.40); RED CELL DISTRIBUTION WIDTH 15.8 % (11.6-13.7); WHITE BLOOD COUNT (AUTO) 10.3 K/uL (4.8-10.8)
[2019-07-31 13:51] LABS: ANION GAP 11.1 (8-16); CARBON DIOXIDE 27.6 mmol/L (21-32); CHLORIDE 109 mmol/L (98-107); CREATININE 1.2 mg/dL (0.6-1.3); GLUCOSE 145 mg/dL (74-106); POTASSIUM 3.7 mmol/L (3.5-5.1); SODIUM SERUM 144 mmol/L (136-145); UREA NITROGEN, BLOOD 16 mg/dL (7-18)
[2019-07-31 13:53] LABS: MAGNESIUM 1.6 mg/dL (1.8-2.4); PHOSPHORUS 2.3 mg/dL (2.5-4.9)
--- NOTE | 2019-07-31 14:10 | NUR ---
Ordered medication given. Patient tolerated it. Offered patient prn Robitussin for cough, patient refused. Patient has no complaints at this time. Safety and aspiration precautions in place, call light within reach, will continue to monitor patient.
[2019-07-31] MEDS ORDERED: MAG SULF 2000 MG/WATER PREMIX 100 ML IV SCH (15:00)
[2019-07-31] MEDS: SODIUM PHOS / POTASSIUM PHOS 1 PKT PDR PO SCH ×2 (15:04→20:21)
--- NOTE | 2019-07-31 15:05 | NUR ---
Ordered medication given. Mag rider given. Patient tolerating it well. Family at bedside. Verbalized plan of care, they verbalized understanding. Patient has no complaints at this time, still refused prn Robitussin. Educated patient on benefits, patient still refused. Safety and aspiration precautions in place, call light within reach, will continue to monitor patient.
[2019-07-31 16:30] VITALS: BP 106/54
--- NOTE | 2019-07-31 16:35 | NUR ---
Blood sugar 108, no coverage needed. BP 106/54 HR 72, lisinopril 5mg given. Patient tolerating them. All needs are met at this time. Safety and aspiration precautions in place, call light within reach, will continue to monitor patient.
--- NOTE | 2019-07-31 17:09 | NUR ---
07/31/2019 RD FOLLOW UP COMPLETED PLEASE REFER TO NUTRITION PROGRESS NOTE UNDER CARE ACTIVITY FOR ESTIMATED NUTRITION NEEDS. RD RECOMMENDATIONS: 1. RECOMMEND CONTINUE 60G CCHO NECTAR THICK DIET 2. RECOMMEND CONTINUE NUTRITION SUPPORT OF GLUCERNA TID 3. HONOR PREFERENCES, ENCOURAGE INCREASED PO INTAKE, AND ASSIST PT NEEDED 4. RD TO FOLLOW-UP 2-3 DAYS, HIGH RISK MARY TOBIN MBA, RD
--- NOTE | 2019-07-31 19:05 | NUR ---
REPORT GIVEN TO PIPE TESTER NURSE AT BEDSIDE FOR CONTINUITY OF CARE. PATIENT IN STABLE CONDITION, SLEEPING COMFORTABLY.
--- NOTE | 2019-07-31 19:08 | NUR ---
RECEIVED PATIENT IN STABLE CONDITION FROM AM SHIFT NURSE FOR CONTINUITY OF CARE. RESPIRATIONS EVEN, UNLABORED. SKIN WARM, DRY TO TOUCH. IV SITE TO LEFT FOREARM 22G CLEAN/DRY/PATENT, INFUSING WELL. NO S/SX ACUTE DISTRESS NOTED. ISOLATION PRECAUTIONS OBSERVED BY STAFF. CALL LIGHT WITHIN REACH. WILL CONTINUE TO MONITOR. Addendum: 07/31/19 at 4 by Cristiana Wilson RN NO ISOLATION PRECAUTIONS.
[2019-07-31 20:00] VITALS: BP 112/54
--- NOTE | 2019-07-31 20:07 | NUR ---
BLOOD SUGAR WAS CHECKED RESULT 87. ENCOURAGED TO TAKE SOME MORE APPLE SAUCE. ABLE TO TAKE SOME. WILL CONTINUE TO MONITOR.
--- NOTE | 2019-07-31 20:23 | NUR ---
RECEIVED PT ON 2L NC WITH SP02 OF 98% AND A CLEAR UPPER LOBES BREATH SOUNDS. NO RESPIRATORY DISTRESS NOTED AT THIS TIME; HR 70, RR 16. HHN TX GIVEN ORDERED WITH NO ADVERSE REACTION. WILL CONTINUE TO MONITOR PT
--- NOTE | 2019-07-31 22:00 | NUR ---
MADE ROUNDS. PT IS ASLEEP. NO S/S OF ANY DISCOMFORT NOR DISTRESS NOTED. WILL CONTINUE TO MONITOR.
[2019-08-01] VITALS: BP 115/91
--- NOTE | 2019-08-01 01:07 | NUR ---
PATIENT ASLEEP IN BED. NO S/SX ACUTE DISTRESS. CALL LIGHT WITHIN REACH. WILL CONTINUE TO MONITOR.
--- NOTE | 2019-08-01 03:00 | NUR ---
MADE ROUNDS. PATIENT IS ASLEEP IN BED. NO S/SX ACUTE DISTRESS. NO C/O PAIN. CALL LIGHT WITHIN REACH. WILL CONTINUE TO MONITOR.
[2019-08-01 04:00] VITALS: BP 98/51
[2019-08-01] MEDS: CLINDAMYCIN 300 MG in DEXTROSE 5% 50 ML IV SCH ×3 (04:15→21:06)
--- NOTE | 2019-08-01 04:20 | NUR ---
PATIENT RESTING COMFORTABLY. INCONTINENT CARE PROVIDED. NO BM AT THIS TIME. NO C/O PAIN. NO S/SX ACUTE DISTRESS. CALL LIGHT WITHIN REACH. WILL CONTINUE TO MONITOR.
[2019-08-01] MEDS: NACL 0.9% 250 ML IV SCH ×3 (04:27→22:15)
[2019-08-01] MEDS: ALBUTEROL SULFATE/IPRATROPIU 3 ML SOL IH SCH ×3 (06:29→19:00)
[2019-08-01] MEDS: BLOOD GLUCOSE MONITORING 1 DEV DEV FS SCH ×4 (06:32→21:06)
--- NOTE | 2019-08-01 06:37 | NUR ---
PATIENT AWAKE AND IN STABLE CONDITION. RT AT BEDSIDE GIVING BREATHING TREATMENT. NO C/O PAIN. NO S/SX ACUTE DISTRESS. OFFERED REPOSITIONING BUT PATIENT REFUSED. RISKS AND BENEFITS EXPLAINED BUT PATIENT CONTINUED TO REFUSE. ALL OTHER NEEDS MET. CALL LIGHT WITHIN REACH. WILL CONTINUE TO MONITOR.
--- NOTE | 2019-08-01 07:18 | NUR ---
ENDORSED PATIENT TO AM SHIFT IN STABLE CONDITION FOR CONTINUITY OF CARE.
--- NOTE | 2019-08-01 07:25 | NUR ---
RECEIVED BEDSIDE REPORT FROM ASSIGNMENT EDITOR NURSE. PT IS ASLEEP, NO S/S OF DISTRESS NOTED. PT IS ON 2L O2 NC. DRESSING NOTED ON THE SACRUM COVERING THE STAGE 2 PRESSURE ULCER. IV SITE L FA 22 G, INFUSING NS 30 ML/HR. FALL PRECAUTIONS IN PLACE. CALL LIGHT IS WITHIN REACH.
--- NOTE | 2019-08-01 07:30 | NUR ---
PT IS REFUSING TO HAVE BLOOD DRAWN
[2019-08-01 08:00] VITALS: BP 106/48
[2019-08-01] MEDS: SODIUM PHOS / POTASSIUM PHOS 1 PKT PDR PO SCH (09:00)
[2019-08-01] MEDS: FUROSEMIDE 40 MG/5 ML ORAL SOL UDC PO SCH (09:00)
[2019-08-01] MEDS: CLOPIDOGREL 75 MG TAB PO SCH (09:00)
[2019-08-01] MEDS: DOCUSATE 100 MG/10 ML UDC PO SCH (09:00)
[2019-08-01] MEDS: CALCIUM CARB/VIT-D 500 MG/200 IU 1 TAB PO SCH ×2 (09:00→21:00)
[2019-08-01] MEDS: buPROPion 150 MG TABER PO SCH ×2 (09:00→21:00)
[2019-08-01] MEDS: LACTOBACILLUS RHAMNOSUS GG 1 EACH CAP PO SCH (09:00)
[2019-08-01] MEDS: LISINOPRIL 5 MG TAB PO SCH (09:00)
[2019-08-01] MEDS: POTASSIUM CHLORIDE 20% 40 MEQ/15 ML UDC PO SCH (09:00)
[2019-08-01] MEDS: ASPIRIN 81 MG TAB.CHEW PO SCH (09:00)
--- NOTE | 2019-08-01 09:12 | NUR ---
PT IS REFUSING ALL OF HER ORDERED AM MEDS. I OFFERED TO CRUSH THEM AND MIX THEM WITH APPLE SAUCE, SHE STILL REFUSED, SAYING "I DON'T WANT TO TAKE THEM, I JUST WANT TO GO HOME". DR BERMEO MADE AWARE.
--- NOTE | 2019-08-01 10:47 | NUR ---
CALLED PT'S DAUGHTER PARTH TO LET HER KNOW THAT PT HAS BEEN WANTING TO GO HOME, AND REFUSED HER MORNING MEDS. I LET HER KNOW THAT MD WANTS TO KEEP HER FOR ANOTHER DAY, BUT THAT SHE HAS A RIGHT TO LEAVE AMA. PARTH IS AGREEING THAT HER MOM SHOULD STAY IN THE HOSPITAL.
[2019-08-01 12:00] VITALS: BP 106/30
--- NOTE | 2019-08-01 12:20 | NUR ---
PT REFUSING TO HAVE NURSE RECHECK HER BP AFTER RN STUDENT WAS NOT ABLE TO OBTAIN A DECENT BP FROM PT. THE BP WAS 106/30. PT IS BEING VERBALLY AGGRESSIVE, SAYING "GET OUT OF HERE" TO THE NURSE, AFTER NURSE TOLD HER THAT WE NEED TO RECHECK HER BP. DR MOORE AWARE.
[2019-08-01] MEDS: SKINTEGRITY HYDROGEL TP SCH (13:00)
[2019-08-01] MEDS ORDERED: guaiFENesin DM 200/20 MG-10 ML 10 ML UDC PO PRN (15:10)
[2019-08-01] MEDS ORDERED: FUROSEMIDE 40 MG/4 ML VIAL IVP SCH (15:30)
[2019-08-01] MEDS ORDERED: guaiFENesin DM 200/20 MG-10 ML 10 ML UDC PO SCH (15:30)
[2019-08-01] MEDS: LEVOFLOXACIN 250 MG/D5 PREMIX 50 ML IV SCH (15:50)
--- NOTE | 2019-08-01 16:45 | NUR ---
PT REFUSED TO HAVE VITAL SIGNS CHECKED. SHE DID ALLOW TO HAVE BLOOD SUGAR CHECKED, WHICH WAS 111.
--- NOTE | 2019-08-01 19:15 | NUR ---
ENDORSED PT TO CHEMICAL PROCESSING LABORER NURSE IN STABLE CONDITION
--- NOTE | 2019-08-01 19:20 | NUR ---
RECEIVE DPT IN STABLE CONDITION FROM AM NURSE. AWAKE,ALERT AND ORIENTED X3. ON TELE MONITOR. BEDREST. WITH NO SOB NOTED. BUT STILL WITH OCCASIONAL PRODUCTIVE COUGH. IVF INFUSING WELL ON THE LT FAg#22. CLEAR AND PATENT. WITH SACRAL PRESSURE WOUND. DRESSING CLEAN AND DRY. PLAN OF CARE DISCUSSED. NEED REINFORCEMENT. BED ON LOW POSITION, SIDE RIALS UP X2, CALL LIGHT PLACED WITHIN REACH ,BED ALARM ON. WILL CONTINUE TO MONITOR.
--- NOTE | 2019-08-01 19:48 | NUR ---
pt refused breathing tx. pt will not let me check her saturation or b/s.
[2019-08-01 20:00] VITALS: BP 104/46
--- NOTE | 2019-08-01 20:30 | NUR ---
PT REFUSED HER PO MEDS AND HEPARIN SUB Q. WILL HAVE MD AWARE.
--- NOTE | 2019-08-01 22:00 | NUR ---
MADE ROUNDS. PT IS AWAKE. NO C/O ANY DISCOMFORT NOTED.
--- NOTE | 2019-08-02 00:05 | NUR ---
AWAKE . BUT REFUSED TO HAVE VITAL SIGNS TAKEN AT THIS TIME. WILL TRY LATER.
--- NOTE | 2019-08-02 02:00 | NUR ---
NEED TO BE REPOSITIONED BUT PT REFUSED . SHE SAID SHE NEEDS TO SLEEP.
[2019-08-02] MEDS: NACL 0.9% 250 ML IV SCH ×2 (03:01→06:35)
--- NOTE | 2019-08-02 04:00 | NUR ---
PT WAS REPOSITIONED OR COMFORT. NO C/O ANY PAIN NOTED. BUT REFUSED ANY VITAL SIGNS AT THIS TIME.
[2019-08-02] MEDS: CLINDAMYCIN 300 MG in DEXTROSE 5% 50 ML IV SCH (04:35)
--- NOTE | 2019-08-02 06:00 | NUR ---
PT REFUSED TO HAVE BLOOD SUGAR CHECK.
[2019-08-02] MEDS: ALBUTEROL SULFATE/IPRATROPIU 3 ML SOL IH SCH ×2 (06:49→12:51)
--- NOTE | 2019-08-02 06:49 | NUR ---
PT REFUSES ALL VITALS AND HHN
--- NOTE | 2019-08-02 07:19 | NUR ---
ENDORSED PT IN STABLE CONDITION TO AM NURSE.
--- NOTE | 2019-08-02 07:25 | NUR ---
RECEIVED BEDSIDE REPORT FROM APPRENTICE CARPENTER NURSE. PT IS AWAKE AND ALERT, NO S/S OF DISTRESS NOTED. PT ON 2L O2 NC. IV SITE LFA 22 G, INFUSING NS 30 ML/HR. FALL PRECAUTIONS IN PLACE. PER APPRENTICE CARPENTER NURSE, PT HAS BEEN ADAMANTLY REFUSING MEDICATIONS AND VITAL SIGN CHECKS. MD IS AWARE. CALL LIGHT IS WITHIN REACH. WILL CONTINUE TO MONITOR.
[2019-08-02] MEDS: BLOOD GLUCOSE MONITORING 1 DEV DEV FS SCH ×2 (07:30→11:30)
--- NOTE | 2019-08-02 07:43 | NUR ---
PT REFUSED TO HAVE VITAL SIGNS CHECKED, AND TO HAVE BREAKFAST. STATES TO CONCRETE CURER AND RN TO "GET OUT OF HERE"
--- NOTE | 2019-08-02 08:43 | NUR ---
PT REFUSED TO HAVE AM BLOOD GLUCOSE CHECK. SAYS TO RN, "STAY OUT OF HERE". MD IS AWARE THAT PT HAS BEEN REFUSING CARE.
[2019-08-02] MEDS: ASPIRIN 81 MG TAB.CHEW PO SCH (08:45)
[2019-08-02] MEDS: LACTOBACILLUS RHAMNOSUS GG 1 EACH CAP PO SCH (08:46)
[2019-08-02] MEDS: POTASSIUM CHLORIDE 20% 40 MEQ/15 ML UDC PO SCH (08:46)
[2019-08-02] MEDS: buPROPion 150 MG TABER PO SCH (08:46)
[2019-08-02] MEDS: CLOPIDOGREL 75 MG TAB PO SCH (08:46)
[2019-08-02] MEDS: DOCUSATE 100 MG/10 ML UDC PO SCH (08:46)
[2019-08-02] MEDS: FUROSEMIDE 40 MG/5 ML ORAL SOL UDC PO SCH (08:46)
[2019-08-02] MEDS: CALCIUM CARB/VIT-D 500 MG/200 IU 1 TAB PO SCH (08:46)
[2019-08-02] MEDS: LISINOPRIL 5 MG TAB PO SCH (08:47)
--- NOTE | 2019-08-02 08:49 | NUR ---
PT REFUSED TO HAVE HER AM MEDS BROUGHT TO HER. SAYS, "I'M NOT TAKING ANY MEDICATIONS. GET OUT OF MY ROOM". AWARE.
[2019-08-02] MEDS ORDERED: LISI-424 PO (08:59)
[2019-08-02] MEDS ORDERED: [UNRECOGNIZED DRUG - CODE] PO (08:59)
[2019-08-02] MEDS ORDERED: LEVO500T2 IV (08:59)
[2019-08-02] MEDS ORDERED: FLUC100T1 PO (08:59)
[2019-08-02] MEDS ORDERED: CLIN300C6 PO ×2 (08:59→09:55)
[2019-08-02] MEDS ORDERED: FLUCONAZOLE 100 MG TAB PO SCH (09:00)
[2019-08-02] MEDS ORDERED: Potassium Chloride 20% PO (09:05)
[2019-08-02] MEDS ORDERED: LEVO500T2 PO (09:08)
[2019-08-02] MEDS ORDERED: INFLUENZA VACCINE QUAD 0.5 ML SYR IMVAC PRN (10:00)
[2019-08-02] MEDS ORDERED: PNEUMOCOCCAL VACCINE 23 MCG/0.5 ML VIAL IMVAC SCH (10:00)
--- NOTE | 2019-08-02 11:07 | NUR ---
SPOKE TO STEVEN SANCHEZ, ABOUT PT'S TRANSFER BACK HOME TO [facility]. BASED ON PT'S ASSESSMENT AND INFORMATION FROM [facility], THE PT IS BEDBOUND. PT DOES HAVE A PRESSURE ULCER ON HER SACRUM. PER CM, FOR THESE REASONS THE PT WILL NEED A [facility] TRANSPORT SERVICE TO TRANSFER HER BACK HOME. LAURA SAID STEVEN WILL WORK ON SETTING UP TRANSPORTATION FOR THE PT.
--- NOTE | 2019-08-02 12:27 | NUR ---
PT'S DAUGHTER PARTH NOTIFIED THAT PT IS TRANSFERRING HOME TO [facility] AT 12:30
--- NOTE | 2019-08-02 13:00 | NUR ---
PT HAS DC'D HOME TO [facility]. PT WAS GIVEN DC DOCUMENTS AND PRESCRIPTION. I REMINDED PT TO GIVE THE PRESCRIPTION TO HER DAUGHTER TO FILL FOR HER, PT VERBALIZED UNDERSTANDING. IV SITE AND WRIST BAND WERE REMOVED. PT LEFT IN STABLE CONDITION VIA [facility].
--- NOTE | 2019-08-03 08:47 | NUR ---
LATE ENTRY FOR 08/02/2019: CONTACTED STEVEN CHINO OF [email or web address] [phone] REGARDING DC PLAN BACK TO [facility], NO ANSWER. COULD NOT LEAVE MESSAGE, VOICEMAIL IS FULL. WILL FOLLOW UP. Addendum: 08/03/19 at 0900 by Brenda Kim CM CONTACTED STEVEN CHINO OF [email or web address] [phone] REGARDING DC PLAN BACK TO [facility] FOR PT, NO ANSWER. COULD NOT LEAVE MESSAGE, VOICEMAIL IS FULL. WILL FOLLOW UP. CONTACTED [email or web address] AT [phone], ABLE TO SPEAK TO STEPHANIE LOWE NOT ABLE TO LEAVE MESSAGES FOR STEVEN CHINO DUE TO MAILBOX IS FULL. SHE STATED SHE WILL GO AHEAD AND TRANSFER ME HOWEVER THE CALL GOT CUT OFF Addendum: 08/03/19 at 1300 by Brenda Kim ABLE TO GET A HOLD OF STEVEN CHINO, SHE STATED PATIENT DOES NOT NEED HOME HEALTH FOR PT BECAUSE PATIENT IS ENROLLED IN THEIR CASE PROGRAM WHERE PATIENT GO TO A CLINIC AND GET REEVALUATED FOR PT.
== END 2019-08-02 13:00 | disposition home or self-care (01) | DRG 871 ==
LOC: MED 09:56 → MTU 13:19 → MMU 15:43
PROVIDERS: ADMIT General Practice; ATTEND General Practice
DX: A41.9 Sepsis, unspecified organism (principal); J69.0 Pneumonitis due to inhalation of food and vomit; I50.43 Acute on chronic combined systolic (congestive) and diastolic (congestive) heart failure; N39.0 Urinary tract infection, site not specified; E87.6 Hypokalemia; E11.9 Type 2 diabetes mellitus without complications; F03.90 Unspecified dementia, unspecified severity, without behavioral disturbance, psychotic disturbance, mood disturbance, and anxiety; I11.0 Hypertensive heart disease with heart failure; I25.10 Atherosclerotic heart disease of native coronary artery without angina pectoris; J44.9 Chronic obstructive pulmonary disease, unspecified; K21.9 Gastro-esophageal reflux disease without esophagitis; L89.152 Pressure ulcer of sacral region, stage 2; H40.9 Unspecified glaucoma; E83.51 Hypocalcemia; E83.42 Hypomagnesemia; R13.10 Dysphagia, unspecified; Z99.3 Dependence on wheelchair; I25.2 Old myocardial infarction; Z87.01 Personal history of pneumonia (recurrent); Z88.0 Allergy status to penicillin; Z88.2 Allergy status to sulfonamides; Z88.8 Allergy status to other drugs, medicaments and biological substances; Z87.891 Personal history of nicotine dependence; Z96.653 Presence of artificial knee joint, bilateral; Z95.810 Presence of automatic (implantable) cardiac defibrillator
CPT/HCPCS: 36415; 71045; 80048; 80053; 81001; 82948; 83036; 83605; 83735; 83880; 84100; 84439; 84443; 84484; 85025; 85610; 85730; 87040; 87070; 87081; 87086; 87205; 87804; 92610; 93005; 94640; 96365; 96375; 97110; 97112; 97161-GP; 99285; A6248; J0610; J1644; J1815; J1940; J1956; J2001; J3475; J3480; J3490; J7030; J7060; J7620; J7626; Q0092

== ENCOUNTER 2019-08-06 21:21 | Inpatient (IN) | payer OTHER, MEDICAID ==
[~2019-08-06] VITALS: Ht 162.6 cm; Wt 89.8 kg
[2019-08-06 21:21] VITALS: BP 90/49
[~2019-08-06 21:21] MED LIST changes: -AZIT250T11 PO; +CLIN300C6 PO; +FLUC100T1 PO; -FURO20TA8 PO; +LEVO500T2 PO; +LISI-424 PO; -POTA10TE30 PO; +Potassium Chloride 20% PO; -VANC1PIG IV; +[UNRECOGNIZED DRUG - CODE] PO
--- NOTE | 2019-08-06 22:08 | NUR ---
JUANITO. TRANSFERRED TO BED #11
--- NOTE | 2019-08-06 22:24 | NUR ---
88 Y/O FEMALE BIBA FROM [facility]. PT PRESENTS TO ED, C/O GENERALIZED WEAKNESS. PER HULL AND DECK REMOVER, PT WAS MORE LETHARGIC MORE THAN USUAL. NO SLURRED SPEECH, FACIAL DROOP, EXTREMITY DEFICIT. PT UNABLE TO AMBULATE DUE TO HX OF HIP FX. PT ON ON 4 L O2 NC. LUNG SOUNDS BILAT CLEAR. DENIES CHEST PAIN. ALERT TO PERSON, TIME, EVENT. PT VSS. PT PLACED ON MONITOR. ERMD AWARE. WILL CONTINUE TO MONITOR.
[2019-08-07] MEDS ORDERED: NACL 0.9% 0 ML IV STA (01:57)
--- NOTE | 2019-08-07 02:34 | NUR ---
LAB AT BEDSIDE DRAWING BLOOD
--- NOTE | 2019-08-07 03:05 | NUR ---
XRAY AT BEDSIDE
[2019-08-07 03:18] LABS: ANION GAP 11.7 (8-16); CARBON DIOXIDE 27.9 mmol/L (21-32); CHLORIDE 106 mmol/L (98-107); CREATININE 1.5 mg/dL (0.6-1.3); GLUCOSE 106 mg/dL (74-106); POTASSIUM 3.6 mmol/L (3.5-5.1); SODIUM SERUM 142 mmol/L (136-145); UREA NITROGEN, BLOOD 24 mg/dL (7-18)
[2019-08-07 03:25] LABS: ALBUMIN 1.7 g/dL (3.4-5.0); ASPARTATE AMINOTRANSFERASE 41 U/L (15-37)
--- NOTE | 2019-08-07 04:11 | NUR ---
INFORMED BY LAB THAT CBC CLOTTED AND LACTIC NOT DRAWN. ATTEMPTED TO REDRAW FOR CBC AND LACTIC. PT PULLED AWAY AND STATES, "NO MORE! THAT NEEDLE HURTS." DR GARCIA INFORMED.
[2019-08-07 05:25] LABS: APPEARANCE,URINE CLOUDY (CLEAR); BILIRUBIN,URINE NEGATIVE (NEGATIVE); BLOOD, URINE 2+ (NEGATIVE); COLOR,URINE YELLOW (YELLOW); LEUKOCYTE ESTERASE ,URINE 3+ (NEGATIVE); NITRITE, URINE NEGATIVE (NEGATIVE); UGLUCOSE NEGATIVE (NEGATIVE)
[2019-08-07 05:48] LABS: WBC,URINE TOO MANY TO COUNT /HPF (0-5); YEAST,URINE Few /HPF (None Seen)
--- NOTE | 2019-08-07 07:25 | NUR ---
Received report from PADMINI Soria
--- NOTE | 2019-08-07 07:27 | NUR ---
Pt resting in bed with eyes closed, easily arrousable. Vital Signs Stable. Pt currently on 4L of O2. Will continue to monitor.
--- NOTE | 2019-08-07 07:30 | NUR ---
Note naun in ED - 08/07/19 at 0856 by [email or web address] PT SITTING UP IN BED AAO, C/O WET COUGH. ST W/O ECT NOTED.
--- NOTE | 2019-08-07 07:30 | NUR ---
PT SITTING UP IN BED AAO, C/O WET COUGH. ST W/O ECT NOTED.
[2019-08-07] MEDS ORDERED: NITROFURANTOIN 100 MG CAP PO ONE (08:40)
--- NOTE | 2019-08-07 09:00 | NUR ---
Pt resting in bed with eyes closed. Vital signs stable. Will continue to monitor.
[2019-08-07 09:11] LABS: BASOPHILS # (AUTO) 0.1 K/uL (0.00-0.22); EOSINOPHILS # (AUTO) 0.5 K/uL (0-0.4); EOSINOPHILS % (AUTO) 3.4 % (0.0-4.0); HEMATOCRIT 43.3 % (36-48); LYMPHOCYTES # (AUTO) 1.1 K/uL (2.5-16.5); LYMPHOCYTES % (AUTO) 7.7 % (20.5-51.1); MEAN CORPUSCULAR HEMOGLOBIN 30 pg (27-31); MEAN CORPUSCULAR HGB CONC 32 g/dL (33-37); MEAN CORPUSCULAR VOLUME 92.4 fL (80-94); MONOCYTES # (AUTO) 1.4 K/uL (0.8-1.0); MONOCYTES % (AUTO) 10.1 % (1.7-9.3); NEUTROPHILS # (AUTO) 10.9 K/uL (1.8-7.7); NEUTROPHILS % (AUTO) 77.8 % (42.2-75.2); PLATELET COUNT (AUTO) 169 K/uL (140-450); RED BLOOD CELL COUNT(AUTO) 4.69 MIL/uL (4.20-5.40); RED CELL DISTRIBUTION WIDTH 16.3 % (11.6-13.7)
--- NOTE | 2019-08-07 10:29 | NUR ---
Pt requesting bed aguilera. Pt placed on bed aguilera and repositioned for comfort.
--- NOTE | 2019-08-07 10:45 | NUR ---
Pt family member came to visit. (Aunt)
[2019-08-07] MEDS ORDERED: ONDANSETRON 4 MG/2 ML VIAL IM/IVP PRN (10:55)
[2019-08-07] MEDS ORDERED: ACETAMINOPHEN 325 MG TAB PO PRN (10:55)
[2019-08-07] MEDS ORDERED: DOCUSATE SODIUM 100 MG GELCAP PO PRN (10:55)
[2019-08-07] MEDS ORDERED: MORPHINE SULFATE 2 MG/ML SYR IVP PRN (10:55)
--- NOTE | 2019-08-07 11:46 | NUR ---
Transfer of care at this time and report given to PADMINI Chang.
--- NOTE | 2019-08-07 11:46 | NUR ---
Patient will be admitted to care of Dr. Chisholm. Admited to Tele. Will go to room 127A. Belongings list completed. Report to PADMINI Chang.
[2019-08-07] MEDS ORDERED: HYDRAGUARD CREAM TP PRN ×2 (11:50→21:30)
[2019-08-07] MEDS ORDERED: INSULIN LISPRO SLIDING SCALE 100 UNITS/ML VIAL SUBQ PRN (11:50)
[2019-08-07] MEDS ORDERED: HYDROXYUREA 500 MG CAP PO SCH ×2 (11:50→15:30)
[2019-08-07] MEDS ORDERED: ALBUTEROL SULFATE/IPRATROPIU 3 ML SOL IH PRN ×3 (11:50→15:25)
[2019-08-07 12:00] VITALS: BP 119/74
--- NOTE | 2019-08-07 12:45 | NUR ---
RECEIVE PT FROM ER NURSE, GIANNA, PT IS STABLE, ON 4L NC, PT IS AWAKE AND ALERT, PT CAME IN [place], INTRODUCE SELF, UPDATE WHITE BOARD, WILL CONTINUE TO MONITOR.
[2019-08-07] MEDS: NACL 0.9% 1,000 ML IV SCH (12:50)
[2019-08-07] MEDS ORDERED: CLINDAMYCIN HCL 300 MG PO SCH (13:00)
[2019-08-07] MEDS: HYDRAGUARD CREAM TP SCH (13:00)
[2019-08-07] MEDS: ALBUTEROL SULFATE/IPRATROPIU 3 ML SOL IH SCH ×2 (13:47→18:49)
[2019-08-07 14:55] LABS: PROTHROMBIN TIME 11.9 secs (10.8-13.4)
--- NOTE | 2019-08-07 15:00 | NUR ---
PT IS RESTING IN BED, PT IS ON 2L NC, PT HAS LFA 22G, RUNNING NS AT 100ML/H, PT IS STABLE, CALL LIGHT WITHIN REACH.
[2019-08-07 15:03] LABS: CHOL/HDL RATIO 5.2 (1-4.5); MAGNESIUM 1.2 mg/dL (1.8-2.4); PHOSPHORUS 2.9 mg/dL (2.5-4.9); THYROID STIMULATING HORMONE 1.27 uIU/mL (0.34-3.74)
[2019-08-07] MEDS ORDERED: FUROSEMIDE 100 MG/10 ML VIAL IV SCH (15:35)
[2019-08-07] MEDS ORDERED: FLUCONAZOLE 100 MG TAB PO SCH (15:35)
[2019-08-07 16:00] VITALS: BP 124/75
[2019-08-07] MEDS: glipiZIDE 5 MG TAB PO SCH (16:30)
[2019-08-07] MEDS: BLOOD GLUCOSE MONITORING 1 DEV DEV FS SCH ×2 (16:30→21:12)
[2019-08-07] MEDS: LATANOPROST 0.005% OP 2.5 ML BTL BOTH EYES SCH (17:00)
[2019-08-07] MEDS: LEVOFLOXACIN 250 MG/D5 PREMIX 50 ML IV SCH (17:17)
--- NOTE | 2019-08-07 17:29 | NUR ---
PT REFUSED GLIPIZIDE, EDUCATION GIVEN, PT IS STABLE, CALL LIGHT WITHIN REACH.
--- NOTE | 2019-08-07 17:34 | NUR ---
PT REFUSED HYDREA, TIMOLOL, DORZDAMID, EDUCATION GIVEN, PT VERBALIZE UNDERSTANDING AND REFUSED.
--- NOTE | 2019-08-07 17:36 | NUR ---
PATIENT HAS BEEN SCREENED AND CATEGORIZED HIGH NUTRITION RISK. PATIENT WILL BE SEEN WITHIN 1-2 DAYS OF ADMISSION. 08/06/2019-08/07/[address]
--- NOTE | 2019-08-07 17:42 | NUR ---
08/07/19 RD INITIAL ASSESSMENT COMPLETED PLEASE REFER TO NUTRITION ASSESSMENT UNDER CARE ACTIVITY FOR ESTIMATED NUTRITIONAL NEEDS. 1. CONTINUE CCHO 60 DIET TOLERATED 2. OBTAIN MORE INFORMATION FROM PT WHEN APPROPRIATE 3. RD TO FOLLOW-UP 2-3 DAYS, HIGH RISK NICK ABRAHAM, RD
[2019-08-07] MEDS: BUDESONIDE 0.5 MG/2 ML NEBU INH SCH (18:49)
--- NOTE | 2019-08-07 18:49 | NUR ---
WENT IN THE ROOM TO ASSESS PT AND TOLD HER SHE HAS A BREATHING TX. SETTED UP THE MEDICATION AND THE PATIENT REFUSED AND DID NOT WANT IT ON.
--- NOTE | 2019-08-07 19:10 | NUR ---
GAVE REPORT TO NIGHT NURSE FOR CONTINUITY OF CARE, PT IS STABLE.
--- NOTE | 2019-08-07 19:11 | NUR ---
RECEIVED REPORT FROM AM SHIFT AKIN. PT IS STABLE, ON 2L NC, , WITH 100 O2. PT IS AWAKE AND ALERT, X 3.WITH SOME CONFUSION. PT W/ DAUGHTER AT BEDSIDE. PT IS TALKING TO DAUGHTER . PT W/ SACRAL WOUND W/ DRESSING INTACT. PT PLACED ON FALL STEVE. POC DISCUSSED TO DAUGHTER.
[2019-08-07 20:00] VITALS: BP 122/72
[2019-08-07] MEDS ORDERED: FUROSEMIDE 40 MG/5 ML ORAL SOL UDC PO SCH (21:00)
[2019-08-07] MEDS ORDERED: NON-FORMULARY ITEM (Dorzolamide HCl/Timolol Maleat (Dorzolamide-Timolol Eye Drops) 1 DROP) OP SCH (21:00)
[2019-08-07] MEDS ORDERED: NON-FORMULARY ITEM (Mometasone/Formoterol (Dulera 200 Mcg/5 Mcg Inhaler) 2 PUFF) IH SCH (21:00)
[2019-08-07] MEDS: buPROPion 150 MG TABER PO SCH (21:44)
[2019-08-07] MEDS: DORZOLAMIDE 2% OP 10 ML BTL OP SCH (21:48)
[2019-08-07] MEDS: TIMOLOL OP 0.5% 5 ML BTL OP SCH (21:49)
--- NOTE | 2019-08-07 22:35 | NUR ---
NOTED WITH HEMATOMA ON THE RIGHT ABDOMEN, AND SOME OPEN WOUND WITH PUS ON THE UMBILICUS. WILL INFORM DR. CARREON, Addendum: 08/07/19 at 2245 by Bisi Mcclelland RN AMEND TO LEFT ABDOMEN Addendum: 08/07/19 at 2253 by Bisi Mcclelland RN PICTURE TAKEN
--- NOTE | 2019-08-07 22:53 | NUR ---
NOTED WITH LEFT UMBILICUS WOUND, 0.6 CM X 0. 3 CM X 0.1CM
[2019-08-08] VITALS: BP 146/82
--- NOTE | 2019-08-08 00:42 | NUR ---
WOUND CULTURE COLLECTED ASEPTICALLY; SENT TO LAB
--- NOTE | 2019-08-08 00:44 | NUR ---
PLACED ICE PACKS ON THE LEFT HEMATOMA AREA; PT KEPT TAKING IT OFF; EXPLAINED THE RISKS AND BENEFITS PT VERBALIZED UNDERSTANDING
[2019-08-08] MEDS: HYDRAGUARD CREAM TP SCH ×2 (01:10→13:42)
--- NOTE | 2019-08-08 02:45 | NUR ---
PT CHECKED DOROTHY Q2; WILL CONTINUE TO MONITOR
[2019-08-08 04:00] VITALS: BP 102/48
--- NOTE | 2019-08-08 04:35 | NUR ---
PT CHANGED AND TURNED. BED LINENS CLEANED , PT GIVEN JUICE. NO COMPLAINTS AT THIS TIME
[2019-08-08] MEDS: NACL 0.9% 1,000 ML IV SCH ×2 (05:17→23:23)
--- NOTE | 2019-08-08 07:06 | NUR ---
PT IN STABLE CONDITION. AWAKE ALERT O X 3, W/ CONFUSION WILL ENDORSE TO NEXT SHIFT
[2019-08-08] MEDS: ALBUTEROL SULFATE/IPRATROPIU 3 ML SOL IH SCH ×3 (07:08→21:45)
[2019-08-08] MEDS: BUDESONIDE 0.5 MG/2 ML NEBU INH SCH ×2 (07:08→21:45)
--- NOTE | 2019-08-08 07:08 | NUR ---
STANDING SATURATION ORDER Addendum: 08/08/19 at 1825 by Chris MADRIGAL 88-92% SATURATION 99% ON SUPPLEMENTAL OXYGEN AT 2 LPM VIA NC POST HHN THERAPY TITRATED FIO2 TO ROOM AIR STONE NOTIFIED
[2019-08-08] MEDS: BLOOD GLUCOSE MONITORING 1 DEV DEV FS SCH ×4 (07:10→21:10)
--- NOTE | 2019-08-08 07:20 | NUR ---
RECEIVE BEDSIDE REPORT FROM NIGHT NURSE, PT ASLEEP GETTING A BREATHING TREATMENT, PT HAS DREW 22G RUNNING NS AT 50ML/H, LH 22G INTACT AND SALINE LOCK, UPDATE WHITEBOARD, SAFETY MEASURES IN PLACE, CALL LIGHT WITHIN REACH, WILL CONTINUE TO MONITOR
--- NOTE | 2019-08-08 07:20 | NUR ---
ENDORSED GLIPIZIDE PO TO NEXT SHIFT NURSE. PS IS 89, PT WAS GIVEN JUICE EARLIER BUT PT DO NOT WANT TO DRINK
[2019-08-08] MEDS: glipiZIDE 5 MG TAB PO SCH ×2 (07:30→16:30)
[2019-08-08 08:00] VITALS: BP 107/41
[2019-08-08 08:11] LABS: BASOPHILS # (AUTO) 0.3 K/uL (0.00-0.22); BASOPHILS % (AUTO) 2.7 % (0.0-2.0); EOSINOPHILS # (AUTO) 0.6 K/uL (0-0.4); HEMATOCRIT 38.1 % (36-48); HEMOGLOBIN 12.3 g/dL (12.0-16.0); LYMPHOCYTES # (AUTO) 0.9 K/uL (2.5-16.5); LYMPHOCYTES % (AUTO) 8.2 % (20.5-51.1); MEAN CORPUSCULAR HEMOGLOBIN 30 pg (27-31); MEAN CORPUSCULAR HGB CONC 32 g/dL (33-37); MEAN CORPUSCULAR VOLUME 92.6 fL (80-94); MONOCYTES # (AUTO) 1.1 K/uL (0.8-1.0); MONOCYTES % (AUTO) 10.8 % (1.7-9.3); NEUTROPHILS # (AUTO) 7.5 K/uL (1.8-7.7); NEUTROPHILS % (AUTO) 72.3 % (42.2-75.2); PLATELET COUNT (AUTO) 158 K/uL (140-450); RED BLOOD CELL COUNT(AUTO) 4.11 MIL/uL (4.20-5.40); RED CELL DISTRIBUTION WIDTH 16.2 % (11.6-13.7); WHITE BLOOD COUNT (AUTO) 10.4 K/uL (4.8-10.8)
[2019-08-08] MEDS ORDERED: POTASSIUM CHLORIDE PO SCH (09:00)
[2019-08-08] MEDS ORDERED: NON-FORMULARY ITEM (Pravastatin Sodium* (Pravachol*) 10 MG) PO SCH (09:00)
[2019-08-08] MEDS ORDERED: LATANOPROST 0.005% OP 2.5 ML BTL OP SCH (09:00)
[2019-08-08] MEDS ORDERED: BISOPROLOL FUMARATE 2.5 MG PO SCH (09:00)
[2019-08-08] MEDS: buPROPion 150 MG TABER PO SCH ×2 (09:03→21:19)
[2019-08-08] MEDS: POTASSIUM CHLORIDE 10 MEQ TABER PO SCH (09:03)
[2019-08-08] MEDS: CLOPIDOGREL 75 MG TAB PO SCH (09:04)
[2019-08-08] MEDS: LACTOBACILLUS RHAMNOSUS GG 1 EACH CAP PO SCH (09:04)
[2019-08-08] MEDS: ATENOLOL 25 MG TAB PO SCH (09:05)
[2019-08-08] MEDS: LISINOPRIL 5 MG TAB PO SCH (09:06)
[2019-08-08] MEDS: ASPIRIN 81 MG TAB.CHEW PO SCH (09:06)
[2019-08-08] MEDS: TIMOLOL OP 0.5% 5 ML BTL OP SCH ×2 (09:07→21:20)
[2019-08-08] MEDS: DORZOLAMIDE 2% OP 10 ML BTL OP SCH ×2 (09:07→21:20)
--- NOTE | 2019-08-08 09:15 | NUR ---
GAVE PT ORDERED MEDICATION, EDUCATION GIVEN, PT TOLERATED WELL, PT IS STABLE, CALL LIGHT WITHIN REACH.
[2019-08-08] MEDS: FUROSEMIDE 20 MG/2 ML VIAL IVP SCH ×2 (09:16→21:11)
[2019-08-08 09:27] LABS: MAGNESIUM 1.1 mg/dL (1.8-2.4); PHOSPHORUS 2.9 mg/dL (2.5-4.9)
[2019-08-08 09:50] LABS: ANION GAP 10.7 (8-16); CARBON DIOXIDE 28.7 mmol/L (21-32); CHLORIDE 109 mmol/L (98-107); CREATININE 1.2 mg/dL (0.6-1.3); GLUCOSE 80 mg/dL (74-106); POTASSIUM 3.4 mmol/L (3.5-5.1); SODIUM SERUM 145 mmol/L (136-145); UREA NITROGEN, BLOOD 19 mg/dL (7-18)
--- NOTE | 2019-08-08 10:26 | NUR ---
INFORMED DR. POWRE PT'S MAGNESIUM WAS 1.1, PER MORNING LABS
[2019-08-08] MEDS ORDERED: MAGNESIUM OXIDE 400 MG TAB PO SCH (10:35)
[2019-08-08] MEDS ORDERED: MAG SULF 2000 MG/WATER PREMIX 100 ML IV ONE (10:35)
[2019-08-08] MEDS ORDERED: POTASSIUM CHLORIDE 10 MEQ TABER PO SCH (10:40)
--- NOTE | 2019-08-08 11:00 | NUR ---
HANG ORDERED MEDICATION, PT ASLEEP, PT IS STABLE, CALL LIGHT WITHIN REACH.
[2019-08-08 12:00] VITALS: BP 103/57
--- NOTE | 2019-08-08 13:42 | NUR ---
APPLIED HYDRAGUARD ON PT SACRAL OPEN WOUND AND PUT A DRESSING ON IT, PT TOLERATED WELL, PT IS STABLE, CALL LIGHT WITHIN REACH.
[2019-08-08 16:00] VITALS: BP 108/53
[2019-08-08] MEDS: LEVOFLOXACIN 250 MG/D5 PREMIX 50 ML IV SCH (17:02)
[2019-08-08] MEDS: LATANOPROST 0.005% OP 2.5 ML BTL BOTH EYES SCH (17:09)
--- NOTE | 2019-08-08 17:10 | NUR ---
GAVE PT ORDERED MEDICATION, EDUCATION GIVEN, PT TOLERATED WELL, PT IS STABLE, NO SIGNS OF DISTRESS NOTED, CALL LIGHT WITHIN REACH.
[2019-08-08] MEDS ORDERED: MAG SULF 2000 MG/WATER PREMIX 50 ML IV SCH (19:05)
--- NOTE | 2019-08-08 19:10 | NUR ---
GAVE REPORT TO NIGHT NURSE FOR CONTINUITY OF CARE, PT IS STABLE
--- NOTE | 2019-08-08 19:11 | NUR ---
RECEIVED REPORT FROM AM SHIFT AKIN. PT IS STABLE, ON 2L NC, 90% PT IS AWAKE AND ALERT, X 3 WITH SOME CONFUSION. PT W/ SACRAL WOUND W/ DRESSING INTACT. PT PLACED ON FALL STEVE. WILL CONTINUE TO MONITOR
[2019-08-08 20:00] VITALS: BP 121/70
--- NOTE | 2019-08-08 22:30 | NUR ---
PT SCREAMING IN THE HALLWAY; BANGING THE TELEMONITOR ON THE BED; INFORMED HER THE RISKS AND BENEFITS. SHE IS AYING THAT SHE WANTS TO GO HOME; INFORMED HER THAT SHE WILL SOON SHE IS GOING TO BE DISCHARGED
--- NOTE | 2019-08-08 22:45 | NUR ---
CLEANED PT. CHANGED AND TURNED, DRESSING STILL INTACT
--- NOTE | 2019-08-08 22:51 | NUR ---
PT ADMINISTERED ATIVAN. STILL BANGING ON THE TELEMONITOR BOX AT THE [facility] AND REFUSING TO LISTEN
[2019-08-08] MEDS ORDERED: LORazepam 2 MG/ML VIAL IM/IVP SCH (23:00)
[2019-08-09] VITALS: BP 121/75
--- NOTE | 2019-08-09 00:35 | NUR ---
PT CLEANED AND TURNED, DRESSING STILL INTACT
[2019-08-09] MEDS: HYDRAGUARD CREAM TP SCH (01:14)
--- NOTE | 2019-08-09 03:44 | NUR ---
CHECKED ON PATIENT, STILL SLEEPING, C/O OF HEADACHE BUT SAID SHE DOES NOT WANT TO TAKE ANY MEDICATION
[2019-08-09 04:00] VITALS: BP 125/88
[2019-08-09] MEDS: BLOOD GLUCOSE MONITORING 1 DEV DEV FS SCH ×4 (06:30→21:30)
--- NOTE | 2019-08-09 06:35 | NUR ---
PT AWAKE, ALERT ORIENTED X 3, WITH SOME PERIODS OF CONFUSION. PT IN STABLE CONDITION WILL ENDORSE TO NEXT SHIFT FOR CONTINUITY OF CARE.
[2019-08-09 06:56] LABS: BASOPHILS # (AUTO) 0.4 K/uL (0.00-0.22); BASOPHILS % (AUTO) 4.2 % (0.0-2.0); EOSINOPHILS # (AUTO) 0.6 K/uL (0-0.4); HEMATOCRIT 39.5 % (36-48); HEMOGLOBIN 12.9 g/dL (12.0-16.0); LYMPHOCYTES # (AUTO) 0.8 K/uL (2.5-16.5); LYMPHOCYTES % (AUTO) 7.7 % (20.5-51.1); MEAN CORPUSCULAR HEMOGLOBIN 30 pg (27-31); MEAN CORPUSCULAR HGB CONC 33 g/dL (33-37); MEAN CORPUSCULAR VOLUME 91.7 fL (80-94); MONOCYTES # (AUTO) 1.2 K/uL (0.8-1.0); MONOCYTES % (AUTO) 11.2 % (1.7-9.3); NEUTROPHILS # (AUTO) 7.5 K/uL (1.8-7.7); NEUTROPHILS % (AUTO) 70.9 % (42.2-75.2); PLATELET COUNT (AUTO) 166 K/uL (140-450); RED BLOOD CELL COUNT(AUTO) 4.31 MIL/uL (4.20-5.40); WHITE BLOOD COUNT (AUTO) 10.6 K/uL (4.8-10.8)
[2019-08-09] MEDS: ALBUTEROL SULFATE/IPRATROPIU 3 ML SOL IH SCH ×3 (07:00→19:00)
[2019-08-09 07:18] LABS: ANION GAP 10.1 (8-16); CARBON DIOXIDE 27.5 mmol/L (21-32); CHLORIDE 111 mmol/L (98-107); CREATININE 1.2 mg/dL (0.6-1.3); GLUCOSE 91 mg/dL (74-106); POTASSIUM 3.6 mmol/L (3.5-5.1); SODIUM SERUM 145 mmol/L (136-145); UREA NITROGEN, BLOOD 17 mg/dL (7-18)
--- NOTE | 2019-08-09 07:25 | NUR ---
RECEIVED PT FROM PROCUREMENT ACCOUNTANT NURSE, LUCY, PT IS AWAKE AND LYIN N ON THE BED WITH SIDE RAILS UP AND CALL ,LIGHT WITHIN REACH, IV LINE ON THE RT UA G. 22 WITH NS INFUSING AT 50ML/HR, AND ON THE LEFT HAND G. 22 ON SALINE LOCK, PT HAS AN OPEN WOUND ON THE SACRAL AREA AND REINFORCED WITH DRESSING, NO SIGN OF DISTRESS NOTED AND WILL MONITOR PT.
[2019-08-09 07:27] LABS: MAGNESIUM 1.5 mg/dL (1.8-2.4); PHOSPHORUS 2.4 mg/dL (2.5-4.9)
[2019-08-09] MEDS: BUDESONIDE 0.5 MG/2 ML NEBU INH SCH ×2 (07:30→19:30)
[2019-08-09] MEDS: glipiZIDE 5 MG TAB PO SCH ×2 (07:30→18:24)
[2019-08-09 08:00] VITALS: BP 98/49
[2019-08-09 08:10] LABS: T4 (THYROXINE) 6.4 ug/dL (4.5-12.0)
[2019-08-09] MEDS: LISINOPRIL 5 MG TAB PO SCH (09:00)
[2019-08-09] MEDS: POTASSIUM CHLORIDE 10 MEQ TABER PO SCH (09:00)
[2019-08-09] MEDS: ATENOLOL 25 MG TAB PO SCH (09:00)
[2019-08-09] MEDS: DORZOLAMIDE 2% OP 10 ML BTL OP SCH ×2 (10:28→21:26)
[2019-08-09] MEDS: TIMOLOL OP 0.5% 5 ML BTL OP SCH ×2 (10:30→21:24)
--- NOTE | 2019-08-09 10:30 | NUR ---
PT WAS GIVEN THE SCHEDULED AM MEDICATIONS, BP MEDICATIONS WERE HELD DUE TO BP IS LOW, 98/49.
[2019-08-09] MEDS: LACTOBACILLUS RHAMNOSUS GG 1 EACH CAP PO SCH (10:32)
[2019-08-09] MEDS: buPROPion 150 MG TABER PO SCH ×2 (10:32→21:00)
[2019-08-09] MEDS: ASPIRIN 81 MG TAB.CHEW PO SCH (10:32)
[2019-08-09] MEDS: CLOPIDOGREL 75 MG TAB PO SCH (10:48)
--- NOTE | 2019-08-09 11:27 | NUR ---
DISCHARGE PLANNING: RECEIVED AN ORDER FOR SNF PLACEMENT FOR PT AND IV ANTIBIOTICS. CONTACTED STEVEN QUINTERO AT [phone] REGARDING DC ORDER. SHE STATED THEY HAVE A CONTRACTED FACILITIES. I CONFIRMED WITH HER SANTIAGO AUGUSTINE AND [facility]. CONTACTED PATIENT'S DAUGHTER PARTH HOLLAND AT [phone] REGARDING DC PLAN AND IS IN AGREEMENT. SHE STATED [facility] IS CLOSER TO THEM. INQUIRY SENT TO [facility] GALLEG[facility] AT [phone]. CM WILL FOLLOW UP. PRIMARY RN AND DR. CARREON MADE AWARE. Addendum: 08/09/19 at 1344 by Brenda Kim CM CONTACTED [facility] VILLARREALANTONI AT [phone] TO FOLLOW UP REFERRAL. ABLE TO SPEAK TO [facility], SHE STATED THEY ARE ABLE TO ACCEPT THE PATIENT. I INFORMED HER THAT I DO NOT HAVE DC ORDER FOR THE PATIENT YET AND WILL INFORM HER ONCE I GET ONE. INGRID CHINO MADE AWARE. DR. CARREON MADE AWARE WELL. Addendum: 08/11/19 at 1033 by Brenda Kim CM PER DR. CARREON, PATIENT IS DISCHARGING TODAY. CONTACTED STEVEN HOUSTON AT [phone] REGARDING DC PLAN. SHE PROVIDED MW WITH SNF AND TRANSPORT AUTH [id number]. PER MARGARITA MOREJON [facility] ROSY, [facility] IS STILL IN THE MEETING AND WILL RELAY THE MESSAGE. Addendum: 08/11/19 at 1154 by Brenda Kim CM PER DR CARREON WILL BE HOLDING OFF ON THE DC FOR TODAY DUE TO WBC 14.9. STEVEN [facility]STON MADE AWARE. Addendum: 08/12/19 at 1019 by Brenda Kim CM PATIENT WILL BE DISCHARGING TODAY TO [facility]. CONTACTED [facility] GALLEG[facility], AMANDA ANDERS IS STILL IN A MEETING AND WILL BE BACK IN 30 MINS. STEVEN WILL FOLLOW UP. Addendum: 08/12/19 at 1021 by Brenda Kim CM STEVEN QUINTERO MADE AWARE. SHE STATED MAY USE THE SAME AUTH PROVIDED YESTERDAY. Addendum: 08/12/19 at 1526 by Brenda Kim CM LATE ENTRY: WOUND C/S (+) MRSA. 1207: PER [facility], STATED THAT THEY ARE IN THE PROCESS OF MOVING PATIENTS AROUND PENDING FAMILY'S APPROVAL AND WILL CALL ME BACK WITH ROOM NUMBER. DR CARREON MADE AWARE. HE STATED PATIENT HAVE BEEN ON VANCOMYCIN FOR SEVERAL DAYS NOW AND WILL COLONIZE. 1300: DISCHARGE SUMMARY FAXED TO [facility]. 1313: PER [facility] [phone], PATIENT WILL GO TO ROOM [address] UNDER DR. JOSUE. PER NATALIE OF [facility], UTILITY LINEMAN WILL BE AT 1645. PRIMARY RN ELAN AND DR. CARREON MADE AWARE. PATIENT'S DAUGHTER MADE AWARE WELL AT [phone].
[2019-08-09] MEDS ORDERED: INTERDRY CLOTH TP SCH (11:45)
[2019-08-09] MEDS ORDERED: INTERDRY CLOTH TP PRN (11:45)
[2019-08-09 12:00] VITALS: BP 108/55
--- NOTE | 2019-08-09 13:08 | NUR ---
*S.T. BEDSIDE SWALLOW EVAL COMPLETED* See report for details. Pt presents w/ moderate oropharyngeal dysphagia c/b prolonged oral prep and mastication w/ all textures, mostly due to limited dentition and general lethargy. Pt also largely uncooperative during eval, refusing most P.O. trials presented to her and refusal to allow this clinician to palpate neck for laryngeal elevation during swallow. Recommend: 1) Downgrade diet to mechanical soft ground, thin liquids. 2) Crush P.O. meds and mix w/ applesauce or similar. 3) 1:1 feeder w/ aspiration precautions. Pt appears to be functioning at her baseline level. No further tx indicated at this time. DC to [facility]. Endorsed to PADMINI Red. Time [id number]
[2019-08-09] MEDS: POTASSIUM CHLORIDE 20% 40 MEQ/15 ML UDC PO SCH (13:38)
--- NOTE | 2019-08-09 13:42 | NUR ---
PT WAS GIVEN MAGNESIUM IV FOR MG LEVEL OF 1.5, AND POTASSIUM 2 MEQ LIQUID, INTERDRY CLOTH WAS APPLIED TO LOWER ABDOMINAL FOLDS.
[2019-08-09] MEDS ORDERED: MAG SULF 2000 MG/WATER PREMIX 50 ML IV SCH (14:00)
--- NOTE | 2019-08-09 14:00 | NUR ---
WOUND CARE EVALUATION NOTE: REASON FOR EVALUATION: SACRAL WOUND SKIN ASSESSMENT DONE WITH PRIMARY RN ON THIS 88 Y/O FEMALE PT ADMITTED FROM [facility] WITH INITIAL DX OF WEAKNESS. PT. ADMITTED WITH PRESSURE ULCERS. PAST MEDICAL HX INCLUDES CHF, HTN, DM AND COPD. ALL ABOVE INFORMATION OBTAINED FROM ADMISSION H&P. PT IS AWAKE. SKIN IS WARM AND DRY, BLE NO HAIR GROWTH, NO EDEMA.BILATERAL DORSAL PEDAL PULSES PRESENT AND NORMAL. CAPILLARY REFILLED < 2 SEC. PLAN OF CARE DISCUSSED WITH PRIMARY RN AND DR. CARREON. ADMISSION WOUND PHOTOS REVIEWED AND TODAY'S ASSESSMENT WITH PHOTO TAKEN. INFORM DR. CARREON OF PRESSURE INJURY STAGE 3 TO SACRAL COCCYX EXTEND LEFT INNER BUTTOCK AND PRESSURE INJURY STAGE 2 TO RIGHT BUTTOCK, AREAS HAS IMPROVED SINCE ADMISSION. RECOMMEND TO CHANGE DRESSING TO HYDROGEL. INTEGUMENTARY: -INTERTRIGO TO LOWER ABDOMINAL FOLDS, SKIN RED WITH SKIN INTACT -SKIN TEAR TO LEFT JOHANA- UMBILICAL CORD,0.5X0.3CM DEPTH <0.1CM, WOUND BED 100% PINK, MOIST NO S/S OF INFECTION. -PRESSURE INJURY STAGE 2 TO RIGHT BUTTOCK WITH 2 OPEN WOUNDS SITE #1 WITH 0.5X1CM, SUPERFICIAL DEPTH, SITE #2 WITH 0.5X0.5CM, SUPERFICIAL DEPTH, BOTH WOUND BED 100% RED GRANULATION TISSUE, MOIST NO ODOR, JOHANA WOUND SKIN INTACT, SURROUNDING REDNESS INDICATED FURTHER DAMAGE. -PRESSURE INJURY STAGE 3 TO SACRAL COCCYX EXTEND LEFT INNER BUTTOCK, 3.5X2.8X0.2CM, WOUND BED 100% GRANULATION TISSUE, MOIST NO ODOR, JOHANA WOUND SKIN INTACT, SURROUNDING REDNESS INDICATED FURTHER DAMAGE. RECOMMENDATIONS: -KEEP SKIN DRY AND CLEAN AT ALL TIMES, PLEASE CHECK Q2H AND PRN FOR INCONTINENCY OF BOWEL AND BLADDER. -CLEANSE SACRALCOCCYX, RIGHT AND LEFT BUTTOCK WOUNDS WITH NS, PAT DRY, APPLY HYDROGEL TO WOUND BED AND COVER WITH DRY DRESSING QD AND PRN IF SOILING -CLEANSE LOWER ABDOMINAL FOLDS WITH SOAP AND WATER, PAT DRY, APPLY INTER DRY CLOTH CHANGE Q 7 DAYS AND PRN IF SOILING --CLEANSE SKIN TEAR TO LEFT JOHANA- UMBILICAL CORD WITH SOAP AND WATER, PAT DRY, APPLY VERSATEL DRESSING CHANGE Q 7 DAYS AND PRN IF SOILING -OFFLOAD BILATERAL HEELS BY PLACING PILLOWS UNDER CALVES UNLESS OTHERWISE CONTRAINDICATED -PRESSURE REDISTRIBUTION SURFACE THERAPY -TURN AND REPOSITION Q2H, OFFLOAD SACRALCOCCYX BY TURNING RIGHT AND LEFT -CONTINUE TO FOLLOW RD RECOMMENDATIONS ALL ABOVE RECOMMENDATIONS DISCUSSED WITH PRIMARY RN WILL FOLLOW UP PT Q7-10 DAYS. PLEASE CONTACT WOUND CARE NURSE FOR ANY QUESTION AND CHANGE OF WOUND CONDITION
[2019-08-09] MEDS: SKINTEGRITY HYDROGEL TP SCH (15:28)
[2019-08-09 16:00] VITALS: BP 97/57
[2019-08-09] MEDS ORDERED: POTASSIUM PHOSPHATE 15 MM in NACL 0.9% 250 ML IV SCH (16:00)
--- NOTE | 2019-08-09 16:40 | NUR ---
BLOOD GLUCOSE CHECK DPONE TO PT NOW AND RESULT IS 137, NO INSULIN COVERAGE NEEDED.
[2019-08-09] MEDS: FUROSEMIDE 20 MG/2 ML VIAL IVP SCH (17:00)
[2019-08-09] MEDS ORDERED: VANCOMYCIN PER PHARMACY MC PRN (18:10)
[2019-08-09] MEDS: LATANOPROST 0.005% OP 2.5 ML BTL BOTH EYES SCH (18:25)
--- NOTE | 2019-08-09 18:35 | NUR ---
PT WAS GIVEN THE POTASSIUM PHOSPHATE IV NOW.
--- NOTE | 2019-08-09 19:25 | NUR ---
ENDORSED PT TO CRUCIBLE PACKER NURSE FOR CONTINUITY OF CARE.
--- NOTE | 2019-08-09 20:01 | NUR ---
RECEIVED PT AWAKE,ALERT,ORIENTED X 2, ANXIOUS AND RESTLESS,UNCOOPERATIVE, RESP EVEN AND EASY,SATS 99% ON 2L NC, LUNG SOUNDS CLEAR, VITAL SIGN WNL,DENIES ANY PAIN AT THIS TIME,ABDOMEN SOFT ,NONTENDER WITH LARGE GIRTH,BS =POSITIVE, RUFFLER SHOWS PACING,HR=66, IV INFUSING ON LFA,INTACT AND PATENT, INCONTINENT, PM CARE GIVEN, REPOSITIONED,CALL LIGHT ON REACH, CONTINUE TO MONITOR.
[2019-08-09] MEDS ORDERED: VANCOMYCIN 1,000 MG in DEXTROSE 5% 250 ML IV SCH (21:00)
--- NOTE | 2019-08-09 21:00 | NUR ---
PT REFUSED TO TAKE HEPARIN INJECTION AND PO MEDS, YELLING AND SCRAMING ' I don't need it'
--- NOTE | 2019-08-09 21:34 | NUR ---
PATIENT REFUSED HHNTX DUONEB AND PULMICORT. PATIENT BREATH SOUNDS ARE CLEAR SATS 98% ON 2LNC. NO SOB NOTED
[2019-08-09] MEDS: NACL 0.9% 1,000 ML IV SCH (22:12)
[2019-08-09 22:35] VITALS: BP 101/93
[2019-08-10] VITALS: BP 102/50
--- NOTE | 2019-08-10 | NUR ---
PT SLEEPING ,VITAL SIGN WNL,NO SIGN OF DISCOMFORT NOTED ,HEEL PROTECTORS APPLIED REPOSITIONED.
[2019-08-10 04:00] VITALS: BP 97/44
--- NOTE | 2019-08-10 05:00 | NUR ---
AM CARE GIVEN ,DRESSING ON SACRAL COCCYX CHANGED ,CLEANED WITH NS ,HYDROGEL APPLIED AND COVERED WITH OPTIFOAM DRESSING, REPOSITIONED FOR COMFORT, WILL ENDORSE CONTINUITY OF CARE TO DAY NURSE.
[2019-08-10 05:55] LABS: ANION GAP 10.4 (8-16); CARBON DIOXIDE 27.5 mmol/L (21-32); CHLORIDE 110 mmol/L (98-107); CREATININE 1.2 mg/dL (0.6-1.3); GLUCOSE 106 mg/dL (74-106); POTASSIUM 3.9 mmol/L (3.5-5.1); SODIUM SERUM 144 mmol/L (136-145); UREA NITROGEN, BLOOD 15 mg/dL (7-18)
[2019-08-10] MEDS: ALBUTEROL SULFATE/IPRATROPIU 3 ML SOL IH SCH ×2 (06:04→14:04)
[2019-08-10] MEDS: BUDESONIDE 0.5 MG/2 ML NEBU INH SCH ×2 (06:04→21:12)
[2019-08-10 06:12] LABS: BASOPHILS # (AUTO) 0.1 K/uL (0.00-0.22); BASOPHILS % (AUTO) 0.9 % (0.0-2.0); EOSINOPHILS # (AUTO) 0.5 K/uL (0-0.4); EOSINOPHILS % (AUTO) 3.2 % (0.0-4.0); HEMATOCRIT 41.7 % (36-48); HEMOGLOBIN 13.7 g/dL (12.0-16.0); LYMPHOCYTES # (AUTO) 0.4 K/uL (2.5-16.5); LYMPHOCYTES % (AUTO) 2.9 % (20.5-51.1); MEAN CORPUSCULAR HEMOGLOBIN 30 pg (27-31); MEAN CORPUSCULAR HGB CONC 33 g/dL (33-37); MEAN CORPUSCULAR VOLUME 92.2 fL (80-94); MONOCYTES # (AUTO) 0.9 K/uL (0.8-1.0); MONOCYTES % (AUTO) 6.1 % (1.7-9.3); NEUTROPHILS # (AUTO) 12.9 K/uL (1.8-7.7); NEUTROPHILS % (AUTO) 86.9 % (42.2-75.2); PLATELET COUNT (AUTO) 166 K/uL (140-450); RED BLOOD CELL COUNT(AUTO) 4.52 MIL/uL (4.20-5.40); RED CELL DISTRIBUTION WIDTH 16.5 % (11.6-13.7); WHITE BLOOD COUNT (AUTO) 14.9 K/uL (4.8-10.8)
[2019-08-10] MEDS: BLOOD GLUCOSE MONITORING 1 DEV DEV FS SCH ×4 (06:12→21:03)
[2019-08-10 06:14] LABS: MAGNESIUM 1.7 mg/dL (1.8-2.4)
--- NOTE | 2019-08-10 06:20 | NUR ---
BLOOD SUGAR THIS AM 107. NO INSULIN NEEDED.
[2019-08-10] MEDS: glipiZIDE 5 MG TAB PO SCH ×2 (06:43→16:30)
--- NOTE | 2019-08-10 07:15 | NUR ---
ENDORSED PT IN STABLE CONDITION TO AM NURSE.
--- NOTE | 2019-08-10 07:18 | NUR ---
RECEIVED PT FROM CLEARING SUPERVISOR NURSE, MATTHEW, PT IS ASLEEP AND LYING ON THE BED WITH SIDE RAILS UP AND CALL LIGTH WITHIN REACH, IV LINE ON THE LEFT FA G. 22 WITH NS INFUSING AT 30ML/HR, PT IS ON O2 2L NC, SACRAL OPEN WOUND NOTED WITH DRESSING, NO SIGN OF DISTRESS NOTED AND WILL CONTINUE TO MONITOR PT.
--- NOTE | 2019-08-10 07:52 | NUR ---
Late entry. Confirmed with RN that 0.9 NS IV completed at 0300.
[2019-08-10 08:00] VITALS: BP 100/52
[2019-08-10] MEDS: LISINOPRIL 5 MG TAB PO SCH (09:00)
[2019-08-10] MEDS: POTASSIUM CHLORIDE 20% 40 MEQ/15 ML UDC PO SCH (09:00)
[2019-08-10] MEDS: FUROSEMIDE 20 MG/2 ML VIAL IVP SCH ×2 (09:00→16:49)
[2019-08-10] MEDS: ATENOLOL 25 MG TAB PO SCH (09:00)
[2019-08-10] MEDS: buPROPion 150 MG TABER PO SCH ×2 (09:23→21:25)
--- NOTE | 2019-08-10 09:23 | NUR ---
PT WAS GIVEN THE SCHEDULED AM MEDICATIONS, BP MEDICATIONS AND LASIX WERE HELD OFF DUE TO BP LOW, 100/55, PULSE IS 60, MD INFORMED.
[2019-08-10] MEDS: CLOPIDOGREL 75 MG TAB PO SCH (09:24)
[2019-08-10] MEDS: ASPIRIN 81 MG TAB.CHEW PO SCH (09:24)
[2019-08-10] MEDS: LACTOBACILLUS RHAMNOSUS GG 1 EACH CAP PO SCH (09:24)
[2019-08-10] MEDS: DORZOLAMIDE 2% OP 10 ML BTL OP SCH ×2 (09:25→21:15)
[2019-08-10] MEDS: TIMOLOL OP 0.5% 5 ML BTL OP SCH ×2 (09:25→21:16)
[2019-08-10] MEDS ORDERED: MAGNESIUM HYDROXIDE 2400 MG/30 ML UDC PO SCH (11:05)
--- NOTE | 2019-08-10 11:20 | NUR ---
PT WAS CLEANED AND REPOSITIONED NOW, SACRAL WOUND CLEANED, MEDICATION APPLIED AND REINFORCED WITH DRESSING, BILATERAL HEELS OFF LOAD.
--- NOTE | 2019-08-10 11:42 | NUR ---
PT WAS GIVEN MILK OF MAGNESIA NOW.
[2019-08-10 12:00] VITALS: BP 105/41
[2019-08-10] MEDS: SKINTEGRITY HYDROGEL TP SCH (13:00)
[2019-08-10 16:00] VITALS: BP 100/57
--- NOTE | 2019-08-10 16:02 | NUR ---
08/10/19 RD FOLLOW UP COMPLETED PLEASE REFER TO NUTRITION ASSESSMENT UNDER CARE ACTIVITY FOR ESTIMATED NUTRITIONAL NEEDS. 1. CONTINUE MECHANICAL SOFT DIET TOLERATED 2. RECOMMEND GLUCERNA BID 3. RECOMMEND VITAMIN C 500 MG DAILY AND MVI QD 4. WHEN PATIENTS PO INTAKE IMPROVES ABOVE 75% RECOMMEND ADDING DIETARY RESTRICTION OF CCHO 60GM 5. RD TO FOLLOW-UP 2-3 DAYS, HIGH RISK VENANCIO MARKS, RD
[2019-08-10] MEDS: DEXTROSE 50% 50 ML SYR IVP PRN ×2 (16:37→21:04)
--- NOTE | 2019-08-10 16:37 | NUR ---
BLOOD GLUCOSE CHECK WAS DONE TO PT AND RESULT IS 50 AND A DEXTROSE 50% WAS GIVEN VIA SLOW IV PUSH, DR. TYSON WAS INFORMED OF THE PT'S BLOOD GLUCOSE RESULT, SCHEDULED GLIPIZIDE WAS HOLD.
--- NOTE | 2019-08-10 16:40 | NUR ---
SCXHEDULED LASIX AND BP MEDICATIONS WERE NOT GIVEN PT'S BP IS 100/57, PULSE IS 63, DR. CARREON WAS INFORMED.
[2019-08-10] MEDS: LATANOPROST 0.005% OP 2.5 ML BTL BOTH EYES SCH (16:54)
--- NOTE | 2019-08-10 16:54 | NUR ---
EYE DROPS WAS INSTILLED TO BOTH EYES NOW FOR THE EVENING EYEDROP MEDICATION. WILL MONITOR PT.
--- NOTE | 2019-08-10 18:00 | NUR ---
BLOOD GLUCOSE WAS RE-CHECKED AND RESULT IS [address] LOVE WAS INFORMED.
--- NOTE | 2019-08-10 19:15 | NUR ---
RECEIVED PT FROM DAY SHIFT SLEEPY, LETHARGIC, RESP EVEN AND EASY, VITAL SIGN WNL,IV INFUSING ON LFA DENIES ANY PAIN AT THIS TIME, PACED ON TEACHER INDUSTRIAL ARTS, CALL LIGHT ON REACH ,CONTINUE TO MONITOR.
[2019-08-10 20:00] VITALS: BP 98/50
--- NOTE | 2019-08-10 21:00 | NUR ---
NEW IV LINE INSERTED ON LFA WITH GAUGE 22, FLUSHED WITH NS 10 ML,INTACT AND PATENT.
--- NOTE | 2019-08-10 21:05 | NUR ---
BLOOD SUGAR CHECK WAS DONE,PT RESULT IS 50 AND DEXTROSE 50% IS GIVEN IVP,DR LOVE IS NOTIFIED
[2019-08-10] MEDS: VANCOMYCIN 750 MG in DEXTROSE 5% 250 ML IV SCH (21:09)
--- NOTE | 2019-08-10 21:17 | NUR ---
RECEIVED PT ON 2L NC WITH SP02 OF 98% AND A CLEAR DIMINISHED BREATH SOUNDS ON THE UPPER LOBES. NO RESPIRATORY DISTRESS NOTED AT THIS TIME. HHN TX GIVEN ORDERED WITH NO ADVERSE REACTION. WILL CONTINUE TO MONITOR PT.
[2019-08-10] MEDS ORDERED: CRUSHER, PILL MC ONE (21:31)
--- NOTE | 2019-08-10 22:00 | NUR ---
BLOOD GLUCOSE WAS RECHECKED AND RESULT WAS 142, DR LOVE IS INFORMED
[2019-08-10] MEDS: NACL 0.9% 1,000 ML IV SCH (22:12)
[2019-08-11] VITALS: BP 94/44
--- NOTE | 2019-08-11 01:00 | NUR ---
D51/2NS STARTED @50CC/HR,IV SITE INTACT AND PATENT, PT SLEEPING ,NO SIGN OF DISCOMFORT NOTED.
[2019-08-11] MEDS: DEXT 5% / NACL 0.45% 1,000 ML IV SCH ×2 (01:20→22:00)
[2019-08-11 04:00] VITALS: BP 98/42
--- NOTE | 2019-08-11 05:00 | NUR ---
WOUND CULTURE FROM ABDOMEN CONFIRMED MRSA,DR LOVE NOTIFIED , CONTACT ISOLATION ORDERED , NO NEW ORDERS GIVEN
[2019-08-11] MEDS: BLOOD GLUCOSE MONITORING 1 DEV DEV FS SCH ×4 (06:35→21:00)
[2019-08-11] MEDS: glipiZIDE 5 MG TAB PO SCH ×2 (06:44→16:30)
--- NOTE | 2019-08-11 06:56 | NUR ---
BLOOD GLUCOSE CHECKED RESULT IS 94, AM CARE GIVEN ,REPOSITIONED FOR COMFORT, ENDORSE TO DAY NURSE
--- NOTE | 2019-08-11 07:25 | NUR ---
ENDORSE PT TO AM NURSE WITH STABLE CONDITION.
--- NOTE | 2019-08-11 07:26 | NUR ---
RECEIVED REPORT FROM LONG WALL MINING MACHINE HELPER NURSE. PATIENT LYING DOWN IN BED SLEEPING, AROUSABLE BY VOICE. NO DISTRESS NOTED. DENIES ANY PAIN. AAOX3, CALM, COOPERATIVE, SKIN COLOR APPROPRIATE TO ETHNICITY, WARM TO TOUCH. HAS SACRAL PRESSURE ULCER, DRESSING DRY AND INTACT. IV SITE INTACT, PATENT, AND INFUSING IVF PER MD ORDERS. RESPIRATIONS EVEN, UNLABORED ON O2 2L/MIN VIA NC. REVIEWED PLAN OF CARE WITH PATIENT. PATIENT VERBALIZED UNDERSTANDING. SAFETY MEASURES IN PLACE, CALL LIGHT WITHIN REACH. WILL CONTINUE TO MONITOR.
[2019-08-11] MEDS: BUDESONIDE 0.5 MG/2 ML NEBU INH SCH ×2 (07:57→20:16)
[2019-08-11 08:00] VITALS: BP 119/62
[2019-08-11] MEDS: FUROSEMIDE 20 MG/2 ML VIAL IVP SCH ×2 (09:00→17:00)
[2019-08-11] MEDS: DORZOLAMIDE 2% OP 10 ML BTL OP SCH ×2 (09:00→21:00)
[2019-08-11] MEDS: TIMOLOL OP 0.5% 5 ML BTL OP SCH ×2 (09:00→22:11)
[2019-08-11] MEDS: POTASSIUM CHLORIDE 20% 40 MEQ/15 ML UDC PO SCH ×2 (09:00→10:20)
[2019-08-11] MEDS: ATENOLOL 25 MG TAB PO SCH (09:00)
[2019-08-11] MEDS: LISINOPRIL 5 MG TAB PO SCH (09:00)
[2019-08-11] MEDS ORDERED: VANC1PDS14 IV (10:15)
[2019-08-11] MEDS: MULTIVITAMIN 1 TAB PO SCH (10:18)
[2019-08-11] MEDS: ASPIRIN 81 MG TAB.CHEW PO SCH (10:18)
[2019-08-11] MEDS: ASCORBIC ACID 500 MG TAB PO SCH (10:18)
[2019-08-11] MEDS: LACTOBACILLUS RHAMNOSUS GG 1 EACH CAP PO SCH (10:18)
[2019-08-11] MEDS: CLOPIDOGREL 75 MG TAB PO SCH (10:18)
[2019-08-11] MEDS: buPROPion 150 MG TABER PO SCH ×2 (10:18→22:09)
--- NOTE | 2019-08-11 10:32 | NUR ---
PATIENT LYING DOWN IN BED SLEEPING, AROUSABLE BY VOICE. NO DISTRESS NOTED. SCHEDULED MEDICATIONS DUE. POTASSIUM LIQUID NOT GIVEN PATIENT REFUSED. WILL CONTINUE TO MONITOR.
[2019-08-11 12:00] VITALS: BP 113/52
[2019-08-11] MEDS: SKINTEGRITY HYDROGEL TP SCH (12:45)
--- NOTE | 2019-08-11 13:03 | NUR ---
Consulted with Dr. Johnson regarding follow up appointment. Dr. Johnson said he will follow up with Dr. Patel.
--- NOTE | 2019-08-11 14:45 | NUR ---
Inspector Quality Assurance Note: Basic Screen: Yes High Risk DC Screen Yes Name: PARTH HOLLAND Home Relationship: DAUGHTER Pre-Admission Living Arrangements: Other Other: ASSISTED LIVING - [facility] Prior ADL Needs Assistance Current Home Health Name/Tel: [facility] Current /02 Name/Tel: HOSPITAL BED, WHEELCHAIR Current Hospice Name/Tel: N/A Current Dialysis Name/Tel: N/A Healthcare Decision Maker: Next of Kin Other: PARTH HOLLAND Advance Directive No Physician Orders for Life Sustaining Treatment Form Yes Discipline: Case Mgt/Social Svcs Tentative Discharge Plan/Destination: SNF/ECF Will require assistance post discharge: No Referred to Active Directory Systems Administrator: No Tentative Discharge Plan Summary: Patient is an 88-year-old female admitted for UTI. Patient has PMHX of CHF, hypertension, COPD, glaucoma, diabetes. Patient was admitted from [facility]. [facility] [phone]. Per Akil, patient is not ambulatory and requires assistance with all ADLs except feeding. Patient's tentative discharge plan is to return to [facility]. No further needs identified. Signature: CONSTANCE Price Date: Aug 11, 2019 Time: 14:44
[2019-08-11 16:00] VITALS: BP 116/49
[2019-08-11] MEDS: LATANOPROST 0.005% OP 2.5 ML BTL BOTH EYES SCH (17:06)
--- NOTE | 2019-08-11 17:07 | NUR ---
PATIENT LYING DOWN IN BED SLEEPING, AROUSABLE BY VOICE. NO DISTRESS NOTED. SCHEDULED MEDICATIONS DUE GIVEN. BP AND DIABETIC MEDICATIONS NOT GIVEN AT THIS TIME DUE TO DECREASED BP AND DECREASED GLUCOSE. WILL CONTINUE TO MONITOR.
--- NOTE | 2019-08-11 19:32 | NUR ---
GAVE REPORT TO STAFF NURSE ANESTHETIST NURSE FOR CONTINUITY OF CARE. PATIENT IN STABLE CONDITION.
--- NOTE | 2019-08-11 19:35 | NUR ---
RECEIVED PT FROM ANGELLA W[place] PT AAOX2 ON BED REST, IV ON LEFT FA INFUSING WELL, ON TELE PACING NOT DISTRESS NOTED INITIAL ASSESSMENT DONE
[2019-08-11 20:00] VITALS: BP 110/54
--- NOTE | 2019-08-11 20:16 | NUR ---
RECEIVED PT ON 2L NC WITH SP02 OF 94% AND A WHEEZING BREATH SOUNDS ON THE UPPER LOBES. NO RESPIRATORY DISTRESS NOTED AT THIS TIME. HHN TX PLUS PRN TX GIVEN ORDERED WITH NO ADVERSE REACTION. WILL CONTINUE TO MONITOR PT.
--- NOTE | 2019-08-11 22:00 | NUR ---
PT ON CLOSE MO;NITORING REPOSITIONED Q2H PACING ON TELE
[2019-08-11] MEDS: VANCOMYCIN 750 MG in DEXTROSE 5% 250 ML IV SCH (22:07)
[2019-08-12] VITALS: BP 103/54
--- NOTE | 2019-08-12 02:00 | NUR ---
PT SLEEPING WELL NOT DISTRESS NOTED NOT FEVER REPOSITIONED REMAIN STABLE
[2019-08-12 04:00] VITALS: BP 108/52
--- NOTE | 2019-08-12 05:00 | NUR ---
SPONGE BATH GIVEN LINEN CHANGED PT COME BACK TO SLEEP QUIET
[2019-08-12 06:18] LABS: BASOPHILS % (AUTO) 0.4 % (0.0-2.0); EOSINOPHILS # (AUTO) 0.6 K/uL (0-0.4); EOSINOPHILS % (AUTO) 4.8 % (0.0-4.0); HEMATOCRIT 39.8 % (36-48); HEMOGLOBIN 12.8 g/dL (12.0-16.0); LYMPHOCYTES # (AUTO) 1.2 K/uL (2.5-16.5); LYMPHOCYTES % (AUTO) 9.1 % (20.5-51.1); MEAN CORPUSCULAR HEMOGLOBIN 29 pg (27-31); MEAN CORPUSCULAR HGB CONC 32 g/dL (33-37); MEAN CORPUSCULAR VOLUME 91.4 fL (80-94); MONOCYTES # (AUTO) 0.9 K/uL (0.8-1.0); MONOCYTES % (AUTO) 7.4 % (1.7-9.3); NEUTROPHILS % (AUTO) 78.3 % (42.2-75.2); PLATELET COUNT (AUTO) 189 K/uL (140-450); RED BLOOD CELL COUNT(AUTO) 4.35 MIL/uL (4.20-5.40); RED CELL DISTRIBUTION WIDTH 16.3 % (11.6-13.7); WHITE BLOOD COUNT (AUTO) 12.7 K/uL (4.8-10.8)
[2019-08-12] MEDS: BLOOD GLUCOSE MONITORING 1 DEV DEV FS SCH ×3 (06:42→16:30)
[2019-08-12] MEDS: glipiZIDE 5 MG TAB PO SCH ×2 (06:43→16:30)
--- NOTE | 2019-08-12 07:24 | NUR ---
RECEIVED REPORT FROM MANAGER SOLAR NURSE. PATIENT LYING DOWN IN BED SLEEPING, AROUSABLE BY VOICE. NO DISTRESS NOTED. DENIES ANY PAIN. AAOX3, CALM, COOPERATIVE, WARM TO TOUCH. HAS SACRAL PRESSURE ULCER, DRESSING DRY AND INTACT. IV SITE INTACT, PATENT, AND INFUSING IVF PER MD ORDERS. RESPIRATIONS EVEN, UNLABORED ON O2 2L/MIN VIA NC. REVIEWED PLAN OF CARE WITH PATIENT. PATIENT VERBALIZED UNDERSTANDING. SAFETY MEASURES IN PLACE, CALL LIGHT WITHIN REACH. WILL MONITOR PT CLOSELY.
[2019-08-12 07:26] LABS: MAGNESIUM 1.5 mg/dL (1.8-2.4); PHOSPHORUS 2.1 mg/dL (2.5-4.9)
--- NOTE | 2019-08-12 07:36 | NUR ---
PT IS ENDORSED TO [facility] NURSE FOR CONTINUE OF CARE
[2019-08-12 08:05] VITALS: BP 97/51
[2019-08-12] MEDS ORDERED: VANC1PDS14 IV (08:11)
[2019-08-12] MEDS: CLOPIDOGREL 75 MG TAB PO SCH (09:00)
[2019-08-12] MEDS: TIMOLOL OP 0.5% 5 ML BTL OP SCH (09:00)
[2019-08-12] MEDS: MULTIVITAMIN 1 TAB PO SCH (09:00)
[2019-08-12] MEDS ORDERED: SODIUM PHOS / POTASSIUM PHOS 1 PKT PDR PO SCH (09:00)
[2019-08-12] MEDS: POTASSIUM CHLORIDE 20% 40 MEQ/15 ML UDC PO SCH (09:00)
[2019-08-12] MEDS: FUROSEMIDE 20 MG/2 ML VIAL IVP SCH ×2 (09:00→17:00)
[2019-08-12] MEDS: LISINOPRIL 5 MG TAB PO SCH (09:00)
[2019-08-12] MEDS: buPROPion 150 MG TABER PO SCH (09:00)
[2019-08-12] MEDS: ASPIRIN 81 MG TAB.CHEW PO SCH (09:00)
[2019-08-12] MEDS: MAG SULF 2000 MG/WATER PREMIX 50 ML IV SCH ×2 (09:00→11:00)
[2019-08-12] MEDS: LACTOBACILLUS RHAMNOSUS GG 1 EACH CAP PO SCH (09:00)
[2019-08-12] MEDS: DORZOLAMIDE 2% OP 10 ML BTL OP SCH (09:00)
[2019-08-12] MEDS: ASCORBIC ACID 500 MG TAB PO SCH (09:00)
[2019-08-12 09:33] LABS: CREATININE 1.2 mg/dL (0.6-1.3); GLUCOSE 111 mg/dL (74-106); UREA NITROGEN, BLOOD 18 mg/dL (7-18)
[2019-08-12 09:44] LABS: ANION GAP 17.5 (8-16); CARBON DIOXIDE 20.4 mmol/L (21-32); CHLORIDE 111 mmol/L (98-107); POTASSIUM 3.9 mmol/L (3.5-5.1); SODIUM SERUM 145 mmol/L (136-145)
--- NOTE | 2019-08-12 10:12 | NUR ---
PT REFUSING ALL MEDS AND CARE AT THIS TIME. TRIED TO HANG IV MEDS FOR PT BUT SHE REFUSED THAT TOO. ALL OTHER NEEDS MET. PT IN STABLE CONDITION AT THIS TIME.
[2019-08-12] MEDS: BUDESONIDE 0.5 MG/2 ML NEBU INH SCH (10:13)
--- NOTE | 2019-08-12 10:13 | NUR ---
PATIENT REFUSED [facility] THERAPY AND RESPIRATORY DRUG (WASTED) ELAN/PADMINI AND IRON HASSAN NOTIFIED
--- NOTE | 2019-08-12 11:20 | NUR ---
PADMINI ANSARI REMAINED TO FOLLOW UP WITH SNF AND PATIENT TO GET IMMUNIZATION STATUS AND DOCUMENT BEFORE DISCHARGING PATIENT.
[2019-08-12 12:00] VITALS: BP 106/77
--- NOTE | 2019-08-12 12:24 | NUR ---
PT RESTING IN BED. ALL NEEDS MET. DAUGHTER AT BEDSIDE. ALL NEEDS MET.
[2019-08-12] MEDS: SKINTEGRITY HYDROGEL TP SCH (13:46)
--- NOTE | 2019-08-12 14:47 | NUR ---
PT ASLEEP. ALL NEEDS MET. WILL CONTINUE TO ROUND ON PT.
[2019-08-12] MEDS: DEXT 5% / NACL 0.45% 1,000 ML IV SCH (15:50)
--- NOTE | 2019-08-12 16:36 | NUR ---
PT REFUSING ALL MEDS AT THIS TIME. WILL CONTINUE TO ROUND ON PT. BED IN LOW POSITION, CALL LIGHT WITHIN REACH.
[2019-08-12] MEDS: LATANOPROST 0.005% OP 2.5 ML BTL BOTH EYES SCH (17:00)
--- NOTE | 2019-08-12 17:40 | NUR ---
PT DISCHARGED TO [facility] FOR CONTINUITY OF CARE. PT DISCHARGE PAPERWORK NOT SIGNED DUE TO PT REFUSING AND BEING ALTERED. IV LEFT IN PLACE DUE TO PT CONTINUING IV THERAPY AT NEW FACILITY. TELE MONITOR REMOVED AND PLACED IN MONITOR ROOM. ALL PERSONAL BELONGINGS SENT WITH PT. PT D/C WOUND PHOTOS TAKEN. WOUND CARE DONE. PT LEFT IN STABLE CONDITION WITH TRANSPORT TEAM. REPORT GIVEN TO MARIA T ACUNA AT [facility].
== END 2019-08-12 17:40 | DRG 291 ==
LOC: MED 21:21 → MMU 08-07 10:54
PROVIDERS: ADMIT General Practice; ATTEND General Practice
DX: I50.43 Acute on chronic combined systolic (congestive) and diastolic (congestive) heart failure (principal); L89.153 Pressure ulcer of sacral region, stage 3; N17.0 Acute kidney failure with tubular necrosis; G93.41 Metabolic encephalopathy; E43 Unspecified severe protein-calorie malnutrition; N39.0 Urinary tract infection, site not specified; I42.0 Dilated cardiomyopathy; B95.2 Enterococcus as the cause of diseases classified elsewhere; E11.9 Type 2 diabetes mellitus without complications; I11.0 Hypertensive heart disease with heart failure; I25.10 Atherosclerotic heart disease of native coronary artery without angina pectoris; J44.9 Chronic obstructive pulmonary disease, unspecified; F32.9 Major depressive disorder, single episode, unspecified; K21.9 Gastro-esophageal reflux disease without esophagitis; Z96.653 Presence of artificial knee joint, bilateral; Z66 Do not resuscitate; I27.21 Secondary pulmonary arterial hypertension; E83.42 Hypomagnesemia; E87.6 Hypokalemia; Z68.34 Body mass index [BMI] 34.0-34.9, adult; I25.2 Old myocardial infarction; Z88.0 Allergy status to penicillin; Z88.2 Allergy status to sulfonamides; Z88.1 Allergy status to other antibiotic agents; Z88.8 Allergy status to other drugs, medicaments and biological substances; Z95.810 Presence of automatic (implantable) cardiac defibrillator; Z90.10 Acquired absence of unspecified breast and nipple; Z87.891 Personal history of nicotine dependence
CPT/HCPCS: 36415; 70450; 71045; 76770; 80048; 80053; 80202; 81001; 82140; 82150; 82948; 83036; 83605; 83690; 83735; 83880; 84100; 84436; 84443; 84484; 85025; 85610; 85730; 87040; 87070; 87075; 87081; 87086; 87186; 87205; 92610; 93005; 94640; 97110; 97112; 97161-GP; 97530; 99285; A6248; J1644; J1815; J1940; J1956; J2060; J3370; J3475; J7030; J7060; J7620; J7626; Q0092